=== PATIENT | male | born 1950 | race Caucasian/White ===

== ENCOUNTER 2019-09-08 14:56 | Outpatient (CLI) | payer OTHER, SELFPAY ==
[2019-09-08 16:00] LABS: Blood Urea Nitrogen 36 mg/dL (9-20); Calcium 9.6 mg/dL (8.4-10.2); Carbon Dioxide 24 mmol/L (22-30); Chloride 105 mmol/L (98-107); Estimated Glomerular Filt Rate 55; Glucose 109 mg/dL (75-110); Sodium 139 mmol/L (137-145)
== END 2019-09-08 14:57 | disposition home or self-care (01) ==
PROVIDERS: PCP Family Medicine; Visit Provider Family Medicine
DX: I10 Essential (primary) hypertension (principal)
CPT/HCPCS: 36415; 80048

== ENCOUNTER 2019-10-27 11:12 | Outpatient (CLI) | payer OTHER, SELFPAY ==
[2019-10-27 12:14] LABS: Anion Gap 10 mmol/L (8-16); Blood Urea Nitrogen 18 mg/dL (9-20); Calcium 9.6 mg/dL (8.4-10.2); Carbon Dioxide 26 mmol/L (22-30); Chloride 102 mmol/L (98-107); Estimated Glomerular Filt Rate > 60; Glucose 111 mg/dL (75-110); Potassium 4.6 mmol/L (3.4-5.0); Sodium 138 mmol/L (137-145)
== END 2019-10-27 11:13 | disposition home or self-care (01) ==
PROVIDERS: Visit Provider Physician Assistant
DX: I10 Essential (primary) hypertension (principal)
CPT/HCPCS: 36415; 80048

== ENCOUNTER 2019-10-28 13:57 | Outpatient (CLI) | payer OTHER, SELFPAY | END 2019-10-28 13:58 | disposition home or self-care (01) | LOC: ANHAUDIO 13:58 | PROVIDERS: Visit Provider Otolaryngology | DX: H90.A22 Sensorineural hearing loss, unilateral, left ear, with restricted hearing on the contralateral side (principal); H90.A31 Mixed conductive and sensorineural hearing loss, unilateral, right ear with restricted hearing on the contralateral side | CPT/HCPCS: 92557; 92567 ==

== ENCOUNTER 2020-11-07 01:47 | Day surgery (SDC) | payer OTHER, SELFPAY ==
[2020-10-31 11:23] VITALS: BMI 34.6
[2020-11-07 08:48] VITALS: BP 154/61; PULSE 66; RESP 20; TEMP 36; O2SAT 99; BMI 34.1
--- NOTE | 2020-11-07 08:58 | WPDGICN ---
Assessment and Plan Assessment and plan (1) History of colon polyps: Code(s): Z86.010 - Personal history of colonic polyps Status: Acute Assessment and Plan: Patient had colon polyps by colonoscopy in 2017. Plan is for surveillance exam at this time. Further recommendations will be given after endoscopy. 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 Patient has a history of colon polyps identified in 2017. Patient's current weight appetite bowel movements are normal. Past medical history is significant for abdominal aortic aneurysm repair as well as peripheral vascular disease. Review of Systems Review of Systems: All systems reviewed & are unremarkable except as noted in HPI and below PMFSH Past Medical History Medical History (Updated 11/07/20 @ 09:00 by Gustavo Jimenez MD) AAA (abdominal aortic aneurysm) Carotid stenosis Peripheral vascular disease Surgical History Surgical History History of endovascular stent graft for abdominal aortic aneurysm (AAA) History of left-sided carotid endarterectomy Hx of appendectomy S/P insertion of iliac artery stent bilateral Family History Family History Mother Family history of diabetes mellitus in first degree relative Sibling Patient's sister is in good health, Onset Age: 56 Father Family history of elevated blood lipids, Onset Age: 83 Social History Social History Smoking packs per day: 1 Smoking cigarettes per day: 20.0 Years smoked: 30 Smoking pack-years: 30.00 Smoking status: Former smoker Tobacco type: cigarettes Second hand tobacco smoke exposure: No Smoking end date: 11/14/18 Alcohol intake: current Drinks per week: 2 Alcohol use details: Beer Substance use: never Substance use type: does not use Living arrangements: with family Gender identity (if verbalized by the patient): Male Spiritual care concerns: No Meds Home Medications and Allergies Home Medications Medication Instructions Recorded Confirmed Type aspirin 81 mg tablet,delayed 81 mg PO DAILY 01/25/19 10/31/20 History release fenofibrate nanocrystallized 145 145 mg PO DAILY #90 tablet 04/10/20 10/31/20 Rx mg tablet losartan 100 mg tablet 100 mg PO DAILY #30 tablet 09/18/20 10/31/20 Rx hydrochlorothiazide 25 mg tablet 25 mg PO DAILY #60 tablet 09/21/20 10/31/20 Rx icosapent ethyl 1 gram capsule 2 g PO BID #120 cap 09/25/20 10/31/20 Rx Vitamin D3 1 cap PO DAILY 10/31/20 10/31/20 History carvedilol 12.5 mg PO BID 10/31/20 10/31/20 History diclofenac sodium 75 mg PO BID 10/31/20 10/31/20 History ezetimibe-simvastatin [Vytorin 1 tablet PO HS 10/31/20 10/31/20 History 10-20] Allergies Allergy/AdvReac Type Severity Reaction Status Date / Time No Known Allergies Allergy Verified 11/07/20 08:46 Vital Signs Vital Signs - 24 hr 11/07/20 08:48 Temperature 96.8 F L Pulse Rate 66 Respiratory Rate 20 Blood Pressure 154/61 H Pulse Oximetry 99 Exam Narrative: Physical exam reveals patient to be alert. Vital signs stable. HEENT exam is unremarkable. Patient is anicteric. Lungs are clear to auscultation and percussion.
--- NOTE | 2020-11-07 09:09 | WPDANESEPPF ---
Anes - Initial Pre Proc Eval Procedure: Operation Date: 11/07/20 09:30 Proposed Procedures p Screening Colonoscopy - Gustavo Jimenez MD Date/Time: 11/07/20 09:09 Surgeon: Gustavo Jimenez MD Pre Op Diagnosis: hx of colon polyps Patient Data Age: 70 Gender: M Height: 1.78 m Weight: 107.9 kg Last Vital Signs Temp 36.0 C L 11/07/20 08:48 Pulse 66 11/07/20 08:48 Resp 20 11/07/20 08:48 BP 154/61 H 11/07/20 08:48 Pulse Ox 99 11/07/20 08:48 Allergies Allergy/AdvReac Type Severity Reaction Status Date / Time No Known Allergies Allergy Verified 11/07/20 08:46 Home Medications Medication Instructions Recorded Confirmed Type aspirin 81 mg tablet,delayed 81 mg PO DAILY 01/25/19 11/07/20 History release fenofibrate nanocrystallized 145 145 mg PO DAILY #90 tablet 04/10/20 11/07/20 Rx mg tablet losartan 100 mg tablet 100 mg PO DAILY #30 tablet 09/18/20 11/07/20 Rx hydrochlorothiazide 25 mg tablet 25 mg PO DAILY #60 tablet 09/21/20 11/07/20 Rx icosapent ethyl 1 gram capsule 2 g PO BID #120 cap 09/25/20 11/07/20 Rx Vitamin D3 1 cap PO DAILY 10/31/20 11/07/20 History carvedilol 12.5 mg PO BID 10/31/20 11/07/20 History diclofenac sodium 75 mg PO BID 10/31/20 11/07/20 History ezetimibe-simvastatin [Vytorin 1 tablet PO HS 10/31/20 11/07/20 History 10-20] Patient hx anesthesia problems: none Family hx anesthesia problems: none PMFSH Past Medical History Medical History AAA (abdominal aortic aneurysm) Carotid stenosis Peripheral vascular disease Surgical History Surgical History History of endovascular stent graft for abdominal aortic aneurysm (AAA) History of left-sided carotid endarterectomy Hx of appendectomy S/P insertion of iliac artery stent bilateral Family History Family History Mother Family history of diabetes mellitus in first degree relative Sibling Patient's sister is in good health, Onset Age: 56 Father Family history of elevated blood lipids, Onset Age: 83 Social History Social History Smoking packs per day: 1 Smoking cigarettes per day: 20.0 Years smoked: 30 Smoking pack-years: 30.00 Smoking status: Former smoker Tobacco type: cigarettes Second hand tobacco smoke exposure: No Smoking end date: 11/14/18 Alcohol intake: current Drinks per week: 2 Alcohol use details: Beer Substance use: never Substance use type: does not use Living arrangements: with family Gender identity (if verbalized by the patient): Male Spiritual care concerns: No Anes - Eval Final PreProcedure Day of Procedure 11/07/20 09:09 Patient weight: obese Heart: regular rate and rhythm Lungs: clear to auscultation Airway: Mallampati scale class II Neurological: alert and oriented Last oral intake: >/= 8 hours ASA classification: III Emergent: no Anesthetic plan: proceed Anesthesia type and monitoring: general GIVS and standard monitoring Informed Consent: The patient's anesthetic plan and its attendant risks and benefits were discussed with the patient/family/POA. Questions were solicited and answers provided to the satisfaction of the patient/family/POA.
[2020-11-07] MEDS: LACTATED RINGERS 1,000 ML 150 ML IV CONT (09:21)
[2020-11-07 09:51] VITALS: BP 94/41; PULSE 74; RESP 18; O2SAT 98
[2020-11-07 10:01] VITALS: BP 96/44; PULSE 73; RESP 19; O2SAT 97
[2020-11-07 10:11] VITALS: BP 120/49; PULSE 61; RESP 18; O2SAT 97
== END 2020-11-07 10:20 | disposition home or self-care (01) ==
PROVIDERS: PCP Family Medicine; Visit Provider Internal Medicine Gastroenterology
PROC: 0DJD8ZZ Inspection of Lower Intestinal Tract, Via Natural or Artificial Opening Endoscopic (ICD-10-PCS; CPT 45378; principal; 2020-11-07 09:30)
DX: Z12.11 Encounter for screening for malignant neoplasm of colon (principal); Z86.010 Personal history of colon polyps; K57.30 Diverticulosis of large intestine without perforation or abscess without bleeding; Z79.82 Long term (current) use of aspirin; I71.4 Abdominal aortic aneurysm, without rupture; I65.29 Occlusion and stenosis of unspecified carotid artery; Z87.891 Personal history of nicotine dependence; E66.9 Obesity, unspecified; Z68.34 Body mass index [BMI] 34.0-34.9, adult; I70.203 Unspecified atherosclerosis of native arteries of extremities, bilateral legs
CPT/HCPCS: G0105; J2001; J2704; J7120

== ENCOUNTER 2021-06-11 15:46 | Inpatient (IN) | payer OTHER, SELFPAY ==
[2021-06-11] VITALS (10 sets, daily range): BP systolic 122–135; BP diastolic 56–76; PULSE 71–117; RESP 13–22; TEMP 36.4; O2SAT 93–97; BMI 34.3
[2021-06-11 16:04] LABS: Basophils Percent Auto 0.5 % (0.2-1.2); Eosinophils Percent Auto 0.3 % (0-4.4); Hematocrit 48.6 % (42.0-52.0); Hemoglobin 16.2 g/dL (14.0-18.0); Immature Granulocyte Absolute 0.05 K/mm3 (0.00-0.031); Immature Granulocyte Percent A 0.9 % (0-0.5); Lymphocytes Absolute Auto 0.77 K/mm3 (0.9-3.2); Lymphocytes Percent Auto 13.3 % (18.3-44.2); Mean Corpuscular HGB Conc 33.3 g/dl (32-36); Mean Corpuscular Volume 93.1 fl (80-100); Mean Platelet Volume 10.8 fl (7.4-10.4); Monocytes Absolute Auto 0.8 K/mm3 (0.1-0.6); Monocytes Percent Auto 12.9 % (2.6-8.5); Neutrophils Absolute Auto 4.2 K/mm3 (1.3-6.7); Neutrophils Percent Auto 72.1 % (45.5-73.1); Platelet Count Result 202 k/mm3 (150-375); Red Blood Count 5.22 M/mm3 (4.6-6.20); White Blood Count 5.8 K/mm3 (4.5-10.0)
[2021-06-11 16:17] LABS: Alanine Aminotransferase 34 U/L (4-50); Alkaline Phosphatase 50 U/L (38-126); Anion Gap 23 mmol/L (8-16); Aspartate Amino Transferase 33 U/L (17-59); Bilirubin,Total 0.5 mg/dL (0.2-1.3); Blood Urea Nitrogen 87 mg/dL (9-20); Carbon Dioxide 14 mmol/L (22-30); Chloride 100 mmol/L (98-107); Estimated CRCL calculation 13 ml/min; Estimated Glomerular Filt Rate 9; Glucose 124 mg/dL (65-110); Lipase 54 U/L (23-300); Potassium 4.6 mmol/L (3.4-5.0); Sodium 137 mmol/L (137-145)
--- NOTE | 2021-06-11 17:01 | ED.NAVMDI ---
HPI - Nausea/Vomiting/Diarrhea General Chief complaint: Nausea/Vomiting/Diarrhea <Stormy Montenegro PA-C - Last Filed: 06/12/21 02:01> Stated complaint: vomiting, diarrhea <MARK Hansen Last Filed: 06/12/21 02:01> Time Seen by Provider: 06/11/21 16:59 <MARK Hansen Last Filed: 06/12/21 02:01> Source: patient <MARK Hansen Last Filed: 06/12/21 02:01> Mode of arrival: ambulatory <MARK Hansen Last Filed: 06/12/21 02:01> Limitations: no limitations <MARK Hansen Last Filed: 06/12/21 02:01> History of Present Illness HPI Narrative: Patient is a 71-year-old male who presents the ED with report of N/V/D. Patient reports he developed the symptoms on Thursday morning, which have persisted since then. He reports multiple episodes of vomiting and diarrhea per day. He states he is unable to keep down any food or fluid. He has not taken his normal home medications in the past 2 days. He notified his primary care doctor of his symptoms today who recommended coming to the ED for further evaluation. Denies any hematemesis or rectal bleeding. No fevers, chills. He does report mild cramping abdominal pain due to the dry heaving/vomiting and oliguria, noting he has not urinated in the past 30 hours. No chest pain, shortness of breath, dysuria, cough, congestion. <MARK Hansen Last Filed: 06/12/21 02:01> Related Data Home medications: Home Medications Medication Instructions Recorded Confirmed aspirin 81 mg tablet,delayed 81 mg PO DAILY 01/25/19 06/11/21 release Vitamin D3 1 cap PO DAILY 10/31/20 06/11/21 carvedilol 12.5 mg PO BID 10/31/20 06/11/21 <MARK Hansen Last Filed: 06/12/21 02:01> Allergies/Adverse reactions: Allergies Allergy/AdvReac Type Severity Reaction Status Date / Time No Known Allergies Allergy Verified 06/11/21 21:51 <Stormy Montenegro PA-C - Last Filed: 06/12/21 02:01> Review of Systems Review of Systems: CONSTITUTIONAL: Denies fever, chills. ENT: Denies congestion. CARDIOVASCULAR: Denies chest pain. RESPIRATORY: Denies cough or dyspnea. GASTROINTESTINAL: Reports abdominal cramping, N/V/D. Denies rectal bleeding, hematemesis. GENITOURINARY: Reports oliguria. Denies dysuria or hematuria. SKIN: Denies rash or itching. MUSCULOSKELETAL: Denies back pain, joint pain, or myalgia. <Stormy Montenegro PA-C - Last Filed: 06/12/21 02:01> All systems reviewed & are unremarkable except as noted in HPI and below <Stormy Montenegro PA-C - Last Filed: 06/12/21 02:01> [facility], [facility] Past Medical History Medical History: Medical History AAA (abdominal aortic aneurysm) Carotid stenosis COVID-19 (~07/2019) Essential (primary) hypertension Mixed hyperlipidemia Obesity (BMI 30-39.9) Obstructive sleep apnea With CPAP use Peripheral vascular disease Personal history of nicotine dependence <Stormy Montenegro PA-C - Last Filed: 06/12/21 02:01> Surgical History Surgical History: Surgical History History of colonoscopy with polypectomy With most recent colonoscopy October 2020 demonstrating no polyps History of endovascular stent graft for abdominal aortic aneurysm (AAA) (~2019) History of left-sided carotid endarterectomy (~2018) Hx of appendectomy (2015) S/P insertion of iliac artery stent (~2019) bilateral Status post open reduction with internal fixation of fracture Left wrist <Stormy Montenegro PA-C - Last Filed: 06/12/21 02:01> Family History Family History: Family History (Updated 06/11/21 @ 22:08 by Faby Ozuna DO) Mother , At age greater than 80 Diabetes mellitus Sibling Patient's sister is in good health, Onset Age: 56 Father Hyperlipidemia Still alive at age 93 <Stormy Montenegro PA-C - Last Filed: 06/12/21 02:01> Social History Social History:
[2021-06-11] MEDS: SODIUM CHLORIDE 0.9% IV 1,000 ML 999 ML IV CONT ×2 (17:34→21:40)
[2021-06-11] MEDS: ONDANSETRON INJ 4 MG/2 ML VIAL IV PUSH (17:34)
--- NOTE | 2021-06-11 17:40 | PC.NURSE ---
Patient states he is unable to urinate at this time.
[2021-06-11 17:53] LABS: Lipase 55 U/L (23-300)
[2021-06-11 18:27] LABS: SARS-CoV-2 RNA PCR Negative
--- NOTE | 2021-06-11 20:35 | PM.IMHP ---
H&P: HPI History of Present Illness Date/Time: 06/11/21 20:35 Chief Complaint: Nausea vomiting and diarrhea Narrative: 71-year-old male with past medical history of hyperlipidemia, hypertension and obstructive sleep apnea who presented to the ER with nausea vomiting and diarrhea for 2 days. The patient reports that symptoms initially started with abdominal cramping and diarrhea. Her soon after starting diarrhea patient then had associated vomiting. His stool was brown and watery. His emesis was without blood or bile. He has not been able to keep any food or liquid down in the last 48 hours. He reports that his abdominal muscles feel sore but no more significant abdominal pain. He denies any recent ill contacts. He he denies any known food exposures or recent travel. He drinks city water supply. He denies any fevers or chills. Margareth osuna was an uric for about 12 hours before coming to the ER. He received a L of normal saline in the ER and after he arrived on the medical floor he did produce approximately 150 mL of dark yellow urine. His nausea is improved after Zofran. 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 Review of Systems Review of Systems: Laboratory Tests 06/11/21 15:55 06/11/21 15:55 06/11/21 06/11/21 06/11/21 15:55 15:55 17:27 WBC 5.8 RBC 5.22 Hgb 16.2 Hct 48.6 MCV 93.1 MCH 31.0 MCHC 33.3 RDW 14.0 Plt Count 202 MPV 10.8 H Immature Gran % (A uto) 0.9 H Neut % (Auto) 72.1 Lymph % (Auto) 13.3 L Dodge % (Auto) 12.9 H Eos % (Auto) 0.3 Baso % (Auto) 0.5 Lymph # (Auto) 0.77 L Dodge # (Auto) 0.8 H Eos # (Auto) 0.0 Baso # (Auto) 0.0 Abs Immat Gran (au to) 0.05 H Absolute Neuts (au to) 4.2 Absolute Nucleated RBC 0.0 Nucleated RBC % 0.0 Sodium 137 Potassium 4.6 Chloride 100 Carbon Dioxide 14 L Anion Gap 23 H BUN 87 H D Creatinine 6.10 H Estim Creat Clear Calc 13 Estimated GFR 9 L Glucose 124 H Calcium 8.0 L Total Bilirubin 0.5 AST 33 ALT 34 Alkaline Phosphata se 50 Total Protein 9.0 H
[2021-06-11 22:02] LABS: Appearance Urine Clear (Clear); Bilirubin Urine 1+ (Negative); Blood Urine Negative (Negative); Color Urine Yellow (Yellow); Glucose Urine UA Negative (Negative); Ketones Urine Negative (Negative); Leukocyte Esterase Ur Negative LEU/UL (Negative); Nitrate Urine Negative (Negative); Protein Urine 1+ mg/dL (Negative); Specific Grav Ur >= 1.030 (1.001-1.035); Urobilinogen Urine 0.2 mg/dL (<2.0)
[2021-06-11 22:21] LABS: Mucus Urine Rare /lpf; RBC Urine 0-2 /hpf (0-2); Squamous Epithelial Cell Urine Rare /hpf (Few); WBC Urine 0-3 /hpf
[2021-06-11 22:27] LABS: Add Urine Microscopic? YES
[2021-06-11] MEDS: SODIUM CHLORIDE 0.9% IV 1,000 ML 125 ML IV CONT (22:49)
--- NOTE | 2021-06-11 22:57 | ADMGEN ---
This patient, Gustavo Goodrich, was admitted to [facility] Surg Room 330- at 1930. Patient/family oriented to hospital policies and general routines including ID bracelet, bed and alarms, visiting hours, pain management, procedures, bathroom and other care routines, personal items, smoking policy, room service/diet, and visiting hours. Information on how to activate the Rapid Response Team has been discussed. Patient/Family are encouraged to report perceived risks to care and to ask questions if they do not understand what they are told or what they should do.
[2021-06-11] MEDS: EZETIMIBE 10 MG TABLET PO (23:07)
[2021-06-11] MEDS: carvediloL 12.5 MG TABLET PO (23:07)
[2021-06-11] MEDS: OMEGA 3 POLYUNSAT FATTY ACIDS 1 GM CAP 2 GM PO (23:07)
[2021-06-11] MEDS: SIMVASTATIN 20 MG TABLET PO (23:07)
[2021-06-12] VITALS (11 sets, daily range): BP systolic 113–123; BP diastolic 40–57; PULSE 72–93; RESP 16–18; TEMP 36.1–36.9; O2SAT 95–97
[2021-06-12] MEDS: SODIUM CHLORIDE 0.9% IV 1,000 ML 125 ML IV CONT ×2 (06:34→14:20)
[2021-06-12 06:41] LABS: Anion Gap 14 mmol/L (8-16); Blood Urea Nitrogen 88 mg/dL (9-20); Calcium 6.9 mg/dL (8.4-10.2); Carbon Dioxide 17 mmol/L (22-30); Chloride 103 mmol/L (98-107); Estimated CRCL calculation 21 ml/min; Estimated Glomerular Filt Rate 16; Glucose 122 mg/dL (65-110); Hematocrit 41.3 % (42.0-52.0); Hemoglobin 13.6 g/dL (14.0-18.0); Magnesium 1.6 mg/dL (1.6-2.3); Mean Corpuscular HGB Conc 32.9 g/dl (32-36); Mean Corpuscular Hemoglobin 30.8 pg (26-34); Mean Corpuscular Volume 93.7 fl (80-100); Mean Platelet Volume 10.7 fl (7.4-10.4); Phosphorus 5.1 mg/dL (2.5-4.5); Platelet Count Result 154 k/mm3 (150-375); Red Blood Count 4.41 M/mm3 (4.6-6.20); Red Cell Distribution Width 13.9 % (11.5-14.5); Sodium 134 mmol/L (137-145); White Blood Count 6.9 K/mm3 (4.5-10.0)
[2021-06-12] MEDS: ENOXAPARIN 30 MG/0.3 ML SYRINGE SUB-Q (09:22)
[2021-06-12] MEDS: FENOFIBRATE NANOCRYSTALLIZED 145 MG TABLET PO (09:22)
[2021-06-12] MEDS: carvediloL 12.5 MG TABLET PO ×2 (09:22→20:34)
[2021-06-12] MEDS: OMEGA 3 POLYUNSAT FATTY ACIDS 1 GM CAP 2 GM PO ×2 (09:22→20:34)
[2021-06-12] MEDS: ASPIRIN 81 MG ENTERIC TABLET PO (09:22)
[2021-06-12] MEDS: SALINE 0.65% NAS SOLN 44 ML BTL 1 SPRAY NASAL (09:23)
--- NOTE | 2021-06-12 10:53 | PCCCNOTE ---
On 06/12/21, the student, [Vivian Young ], provided care and completed [facility] documentation on this patient. I have reviewed the student's documentation and agree with the findings.
--- NOTE | 2021-06-12 12:07 | PM.CNNEP ---
Assessment and Plan Assessment and plan (1) JESSIE (acute kidney injury): Code(s): N17.9 - Acute kidney failure, unspecified Status: Acute Assessment and Plan: presumably due to volume depletion from #2 complicated by concurrent use of HCTZ + ARB (and possibly NSAIDs) renal function improving with IVF resuscitation and holding nephrotoxic agents continue current therapy for now follow repeat labs and UOP (2) Nausea vomiting and diarrhea: Code(s): R11.2 - Nausea with vomiting, unspecified; R19.7 - Diarrhea, unspecified Status: Acute Assessment and Plan: suspect viral etiology eating lunch without difficult on my visit supportive therapy (3) Metabolic acidosis: Code(s): E87.2 - Acidosis Status: Acute Assessment and Plan: precipitated by GI issues and subsequent JESSIE/ARF improving/stabilizing follow CO2 (4) Essential (primary) hypertension: Code(s): I10 - Essential (primary) hypertension Status: Chronic Assessment and Plan: reasonable control at this time HCTZ and ARB on hold follow trend of hemodynamics Will continue to follow. History of Present Illness Reason for Consult Consult date: 06/12/21 Reason for consult: acute renal failure Chief Complaint Chief complaint: Acute renal failure History of Present Illness Narrative: The patient is a 71-year-old male with a past medical history as outlined below who presented to [facility] Emergency room with complaints of nausea, vomiting, and diarrhea. All of the symptoms seem to be of going on for last 2-3 days. Initially, the symptoms started with just abdominal cramping and diarrhea but soon after the diarrhea started he started having issues with nausea and vomiting. Both his stool as well as his emesis was without blood, bile, or any other contents. Unfortunately, because of the symptoms he has been unable to keep anything down in terms of oral hydration or food for the past 2-3 days. He he has been having so much nausea and vomiting that his abdominal muscles are quite sore. No reported fevers or chills or any other subjective symptoms. Workup and evaluation emergency room demonstrated the patient to be slightly hypotensive but in no acute [place] acute distress. Given his symptomatology and the concern for dehydration, he was given IV fluid boluses in the emergency room with routine blood test that demonstrated evidence of acute kidney injury/ acute renal failure. Following the IV fluid bolus, he did produce some urine as an previously he had been almost anuric. his nausea symptoms improved with IV antiemetics as well. Since his admission, his symptoms of nausea vomiting and diarrhea seemed to be doing somewhat better in general. At the time of my visit, he was eating lunch and did not appear to have any issues or problems with this. Renal consultation was requested due to his acute kidney injury/acute renal failure. From review of his records, at least as far back as 2019, he had a baseline creatinine around 1.3 mg/dL which would argue that he may have some mild renal insufficiency at baseline. However, on presentation to the hospital, his creatinine was up to 6.1 mg/dL with an associated metabolic acidosis but no evidence of critical electrolyte abnormalities. With regard to risk factors for kidney disease he does have hypertension and hyperlipidemia as well as a well-documented history of peripheral vascular disease and follows with Dr. Calvillo at [facility] for this issue. Currently, at the time my evaluation, he appears to be in no acute distress and as already mentioned, eating and drinking reasonably well at the time of my visit. His is at bedside and we discussed the situation. Review of Systems Review of Systems: As per HPI. [facility] Past Medical History Medical History AAA (a
--- NOTE | 2021-06-12 13:27 | PM.IMPN ---
Progress Note: A&P Assessment and Plan (1) Acute renal failure: Qualifiers: Acute renal failure type: unspecified Qualified Code(s): N17.9 - Acute kidney failure, unspecified Code(s): N17.9 - Acute kidney failure, unspecified Status: Acute Assessment and Plan: Most likely prerenal in etiology secondary to dehydration. Likely worsened by concomitant use of diclofenac, hydrochlorothiazide, losartan Creatinine elevated to 6.1 on presentation and patient was anuric Significant improvement with IV fluids overnight. Creatinine is 3.7 today Monitor urine output S/p 2 L IV fluid bolus. Continue with IV fluid rehydration at 125 ml/hr. Monitor volume status closely Appreciate nephrology consultation Holding nephrotoxic medications Continue to monitor renal function closely and renally dose medications (2) Nausea vomiting and diarrhea: Code(s): R11.2 - Nausea with vomiting, unspecified; R19.7 - Diarrhea, unspecified Status: Acute Assessment and Plan: Resolved. Suspect viral etiology Patient tolerating heart healthy diet (3) Essential (primary) hypertension: Code(s): I10 - Essential (primary) hypertension Status: Acute Assessment and Plan: Blood pressure reviewed and has been stable. Last BP 113/57 Continue carvedilol HCTZ and losartan on hold Monitor blood pressure trends (4) Obstructive sleep apnea (adult) (pediatric): Code(s): G47.33 - Obstructive sleep apnea (adult) (pediatric) Status: Acute Assessment and Plan: Continue home CPAP (5) Peripheral vascular disease: Code(s): I73.9 - Peripheral vascular disease, unspecified Status: Acute Assessment and Plan: Established with vascular surgeon, Dr. Calvillo No acute issues Continue aspirin Subjective Date/time seen: 06/12/21 13:27 Interval history: Date of service: 06/12/2021 Gustavo Goodrich is a 71-year-old male with a history of carotid stenosis s/p carotid endarterectomy, peripheral vascular disease s/p iliac stent, AAA s/p endovascular stent, LULI, hypertension, and hyperlipidemia who is seen in follow-up for acute kidney injury. He states that he is feeling better today. He presented with vomiting, diarrhea, and abdominal cramping. Denies sick contacts. He states that all the symptoms have resolved. He does still have some abdominal soreness related to dry heaving. No further nausea or vomiting. He had a small amount of loose stool today. He is passing flatus. This morning he had aches and a biscuit for breakfast and tolerated this well. He has been drinking plenty of water. He has been urinating more frequently and states he cap 2 times last night to urinate. He does complain of sinus congestion which has improved with nasal saline. He denies chest pain or palpitations. No dizziness, lightheadedness, weakness. He is able to ambulate to the bathroom without difficulty. He denies dysuria or hematuria. Denies pain in his legs. Denies numbness or tingling of his extremities. No shortness breath or cough. Review of Systems Review of Systems: All systems reviewed & are unremarkable except as noted in HPI and below Exam Narrative: General: Well-nourished, well-appearing 71 year-old male, sitting in a chair by the bedside, comfortable, NARD Neuro: awake, alert and oriented x4, speech clear, no focal neuro deficits noted HEENMT: normocephalic, atraumatic, EOMI, sclerae anicteric, moist oral mucosa Respiratory: clear to auscultation bilaterally, nonlabored breathing Cardio: regular rate, regular rhythm with S1-S2 Abdomen: nondistended, normoactive bowel sounds, soft, nontender to palpation Extremities: no edema, erythema, or tenderness to palpation, able to wiggle toes bilaterally, brisk capillary refill Skin: no rashes or lesions, warm and dry Psych: appropriate mood and affect, judgment and insight intact Objective Data Vital Signs V
[2021-06-12] MEDS: EZETIMIBE 10 MG TABLET PO (20:34)
[2021-06-12] MEDS: SIMVASTATIN 20 MG TABLET PO (20:34)
[2021-06-13] VITALS (13 sets, daily range): BP systolic 128–161; BP diastolic 48–64; PULSE 59–79; RESP 16–20; TEMP 36–37.2; O2SAT 95–97
[2021-06-13 02:00] LABS: Creatinine Urine 94.4 mg/dL; Total Protein Urine Random 17 mg/dL; Ur Ttl Prot Creatinine Ratio 0.18 mg/mg (0-0.20)
[2021-06-13 02:03] LABS: Sodium Urine Random 42 meq/L
[2021-06-13] MEDS: SODIUM CHLORIDE 0.9% IV 1,000 ML 100 ML IV CONT ×3 (02:11→23:52)
[2021-06-13 06:08] LABS: Hematocrit 38.4 % (42.0-52.0); Hemoglobin 12.4 g/dL (14.0-18.0); Mean Corpuscular HGB Conc 32.3 g/dl (32-36); Mean Corpuscular Hemoglobin 31.3 pg (26-34); Mean Platelet Volume 10.5 fl (7.4-10.4); Platelet Count Result 144 k/mm3 (150-375); Red Blood Count 3.96 M/mm3 (4.6-6.20); Red Cell Distribution Width 14.2 % (11.5-14.5); White Blood Count 6.2 K/mm3 (4.5-10.0)
[2021-06-13 06:19] LABS: Creatine Kinase 74 U/L (55-170)
[2021-06-13 06:23] LABS: Albumin Level 3.7 g/dL (3.5-5.1); Anion Gap 7 mmol/L (8-16); Blood Urea Nitrogen 70 mg/dL (9-20); Calcium 7.2 mg/dL (8.4-10.2); Carbon Dioxide 21 mmol/L (22-30); Chloride 107 mmol/L (98-107); Estimated CRCL calculation 42 ml/min; Estimated Glomerular Filt Rate 38; Glucose 99 mg/dL (65-110); Phosphorus 3.4 mg/dL (2.5-4.5); Potassium 3.7 mmol/L (3.4-5.0); Sodium 135 mmol/L (137-145)
[2021-06-13] MEDS: FENOFIBRATE NANOCRYSTALLIZED 145 MG TABLET PO (08:32)
[2021-06-13] MEDS: OMEGA 3 POLYUNSAT FATTY ACIDS 1 GM CAP 2 GM PO ×2 (08:32→21:08)
[2021-06-13] MEDS: ASPIRIN 81 MG ENTERIC TABLET PO (08:32)
[2021-06-13] MEDS: ENOXAPARIN 30 MG/0.3 ML SYRINGE SUB-Q (08:32)
[2021-06-13] MEDS: carvediloL 12.5 MG TABLET PO ×2 (08:33→21:08)
--- NOTE | 2021-06-13 10:49 | PM.IMPN ---
Progress Note: A&P Assessment and Plan (1) Acute renal failure: Qualifiers: Acute renal failure type: unspecified Qualified Code(s): N17.9 - Acute kidney failure, unspecified Code(s): N17.9 - Acute kidney failure, unspecified Status: Acute Assessment and Plan: Most likely prerenal in etiology secondary to dehydration. Likely worsened by concomitant use of diclofenac, hydrochlorothiazide, losartan Creatinine elevated to 6.1 on presentation and patient was anuric Significant improvement with IV fluids. Creatinine is 1.8 today, BUN 70 Monitor urine output S/p 2 L IV fluid bolus. Continue with IV fluid rehydration at 100 ml/hr. Monitor volume status closely Appreciate nephrology consultation Holding nephrotoxic medications Continue to monitor renal function closely and renally dose medications (2) Nausea vomiting and diarrhea: Code(s): R11.2 - Nausea with vomiting, unspecified; R19.7 - Diarrhea, unspecified Status: Acute Assessment and Plan: Resolved. Suspect viral etiology Patient tolerating heart healthy diet (3) Essential (primary) hypertension: Code(s): I10 - Essential (primary) hypertension Status: Acute Assessment and Plan: Blood pressure reviewed and has been stable. Last BP 129/64 Continue carvedilol HCTZ and losartan on hold Monitor blood pressure trends (4) Obstructive sleep apnea (adult) (pediatric): Code(s): G47.33 - Obstructive sleep apnea (adult) (pediatric) Status: Acute Assessment and Plan: Continue home CPAP (5) Peripheral vascular disease: Code(s): I73.9 - Peripheral vascular disease, unspecified Status: Acute Assessment and Plan: Established with vascular surgeon, Dr. Calvillo No acute issues Continue aspirin Subjective Date/time seen: 06/13/21 10:49 Interval history: Date of service: 06/13/2021 Gustavo Goodrich is a 71-year-old male with a history of carotid stenosis s/p carotid endarterectomy, peripheral vascular disease s/p iliac stent, AAA s/p endovascular stent, LULI, hypertension, and hyperlipidemia who is seen in follow-up for acute kidney injury. He is doing well today. He offers no complaints. His nausea, vomiting, and diarrhea have resolved. He is able to get up and walk around his room without any difficulty. He ate a good breakfast today, and stated this was the most he has been able to eat in several days. He does at times feel a bit lightheaded and ?bizarre? which he believes is due to laying in bed for prolonged periods of time. He is not used to doing this. He denies shortness of breath, cough, chest pain, palpitations. He denies abdominal pain, cramping, bloating. He is making urine and denies dysuria. Review of Systems Review of Systems: All systems reviewed & are unremarkable except as noted in HPI and below Exam Narrative: General: Well-nourished, well-appearing 71 year-old male, sitting in a chair by the bedside, comfortable, NARD Neuro: awake, alert and oriented x4, speech clear, no focal neuro deficits noted HEENMT: normocephalic, atraumatic, EOMI, sclerae anicteric, moist oral mucosa Respiratory: clear to auscultation bilaterally, nonlabored breathing Cardio: regular rate, regular rhythm with S1-S2 Abdomen: nondistended, normoactive bowel sounds, soft, nontender to palpation Extremities: no edema, erythema, or tenderness to palpation, able to wiggle toes bilaterally Skin: no rashes or lesions, warm and dry Psych: appropriate mood and affect, judgment and insight intact Objective Data Vital Signs Vital Signs: Vital Signs - 24 hr 06/12/21 12:00 06/12/21 14:00 06/12/21 16:00 Temperature 97.2 F L Pulse Rate 79 72 76 Respiratory Rate 18 Blood Pressure 123/47 L Pulse Oximetry 96 06/12/21 20:00 06/12/21 20:34 06/12/21 22:00 Temperature 98.4 F Pulse Rate 74 76 74 Respiratory Rate 16 16 Blood Pressure 114/40 L
--- NOTE | 2021-06-13 11:57 | PM.PNNEP ---
Progress Note: A&P Assessment and Plan (1) JESSIE (acute kidney injury): Code(s): N17.9 - Acute kidney failure, unspecified Status: Acute Assessment and Plan: resolving presumably due to volume depletion from #2 complicated by concurrent use of HCTZ + ARB (and possibly NSAIDs) renal function improving with IVF resuscitation and holding nephrotoxic agents continue current therapy for now follow repeat labs and UOP (2) Nausea vomiting and diarrhea: Code(s): R11.2 - Nausea with vomiting, unspecified; R19.7 - Diarrhea, unspecified Status: Acute Assessment and Plan: suspect viral etiology toleraing oral intake supportive therapy (3) Metabolic acidosis: Code(s): E87.2 - Acidosis Status: Acute Assessment and Plan: precipitated by GI issues and subsequent JESSIE/ARF improving/stabilizing follow CO2 (4) Essential (primary) hypertension: Code(s): I10 - Essential (primary) hypertension Status: Chronic Assessment and Plan: reasonable control at this time HCTZ and ARB on hold follow trend of hemodynamics Will continue to follow. Subjective Date/time seen: 06/13/21 11:57 Appears to be feeling quite well today in general; continues to tolerated oral intake without any nause/vomiting/diarrhea;renal function continues to improve as noted by AM labs; no issues/events overnight or earlier this AM. Exam Narrative: General: WD/WN male in NAD Heart: normal S1 and S2; no rub Lungs: clear to auscultation Abdomen: soft, nontender, nondistended, positive bowel sounds Extremities: no cyanosis or clubbing; no edema Skin: warm and dry Objective Data Vital Signs Vital Signs: Vital Signs Temp Pulse Resp BP Pulse Ox 06/13/21 08:33 70 06/13/21 08:00 70 16 97 06/13/21 06:00 37.2 C 71 16 129/64 97 06/13/21 04:00 67 06/13/21 03:02 74 95 06/13/21 00:03 76 97 06/13/21 00:00 76 06/12/21 22:00 36.9 C 74 16 114/40 L 97 06/12/21 20:34 76 06/12/21 20:00 74 16 97 06/12/21 16:00 76 06/12/21 14:00 36.2 C L 72 18 123/47 L 96 06/12/21 12:00 79 Intake/Output Intake/Output: Intake & Output 06/10/21 06/11/21 06/12/21 06/13/21 23:59 23:59 23:59 23:59 Intake Total 1999 5230 1750 Output Total 1500 1550 Balance 1999 3730 200 Meds/Results Medications: Active Medications Generic Name Dose Route Start Last Admin Trade Name Aurea PRN Reason Stop Dose Admin Aspirin 81 mg 06/12/21 09:00 06/13/21 08:32 Aspirin 81 Mg Enteric Tablet PO 81 mg DAILY ROSINA Administration Carvedilol 12.5 mg 06/11/21 22:05 06/13/21 08:33 Carvedilol 12.5 Mg Tablet PO 12.5 mg Q12HR ROSINA Administration Ezetimibe 10 mg 06/11/21 22:05 06/12/21 20:34 Ezetimibe 10 Mg Tablet PO 07/12/21 22:04 10 mg HS ROSINA Administration Enoxaparin Sodium 30 mg 06/12/21 09:00 06/13/21 08:32 Enoxaparin 30 Mg/0.3 Ml Syringe SUB-Q 30 mg DAILY ROSINA Administration Fenofibrate 145 mg 06/12/21 09:00 06/13/21 08:32 Fenofibrate Nanocrystallized 145 Mg Tablet PO 145 mg DAILY ROSINA Administration Fish Oil 2 gm 06/11/21 22:05 06/13/21 08:32 Altura 3 Polyunsat Fatty Acids 1 Gm Cap PO 2 gm Q12HR ROSINA Administration Sodium Chloride 1,000 mls @ 100 mls/hr 06/11/21 17:35 06/13/21 11:36 Normal Saline Iv IV CONT 100 mls/hr .Q10H ROSINA Administration Ondansetron HCl 4 mg 06/11/21 17:33 Ondansetron Inj 4 Mg/2 Ml Vial IV PUSH Q4H PRN Nausea Simvastatin 20 mg 06/11/21 22:05 06/12/21 20:34 Simvastatin 20 Mg Tablet PO 20 mg HS ROSINA Administration Sodium Chloride 1 spray 06/12/21 06:50 06/12/21 09:23 Saline 0.65% Tadeo Soln 44 Ml Btl NASAL 1 spray Q6HR PRN Administration Congestion Labs Labs: Laboratory Tests 06/13/21 05:40 06/13/21 05:40
[2021-06-13] MEDS: SIMVASTATIN 20 MG TABLET PO (21:08)
[2021-06-13] MEDS: EZETIMIBE 10 MG TABLET PO (21:09)
[2021-06-14] VITALS: PULSE 59
[2021-06-14 00:20] VITALS: PULSE 66; O2SAT 97
[2021-06-14 04:00] VITALS: PULSE 60
[2021-06-14 06:00] VITALS: BP 124/62; PULSE 64; RESP 20; TEMP 36.1; O2SAT 98
[2021-06-14 06:04] LABS: Hematocrit 35.3 % (42.0-52.0); Hemoglobin 11.5 g/dL (14.0-18.0)
[2021-06-14 06:34] LABS: Anion Gap 7 mmol/L (8-16); Blood Urea Nitrogen 47 mg/dL (9-20); Calcium 7.6 mg/dL (8.4-10.2); Carbon Dioxide 23 mmol/L (22-30); Chloride 109 mmol/L (98-107); Estimated CRCL calculation 62 ml/min; Estimated Glomerular Filt Rate 60; Glucose 101 mg/dL (65-110); Potassium 3.8 mmol/L (3.4-5.0); Sodium 139 mmol/L (137-145)
[2021-06-14 08:00] VITALS: PULSE 68
[2021-06-14] MEDS: ENOXAPARIN 30 MG/0.3 ML SYRINGE SUB-Q (09:39)
[2021-06-14 09:40] VITALS: PULSE 64
[2021-06-14] MEDS: carvediloL 12.5 MG TABLET PO (09:40)
[2021-06-14] MEDS: OMEGA 3 POLYUNSAT FATTY ACIDS 1 GM CAP 2 GM PO (09:40)
[2021-06-14] MEDS: FENOFIBRATE NANOCRYSTALLIZED 145 MG TABLET PO (09:40)
[2021-06-14] MEDS: ASPIRIN 81 MG ENTERIC TABLET PO (09:40)
--- NOTE | 2021-06-14 10:38 | PM.DS ---
DS: Admitting Diagnosis Discharge Date 06/14/2021 Admitting Diagnosis JESSIE DS: Discharge Diagnosis Discharge Diagnosis (1) Acute renal failure: Qualifiers: Acute renal failure type: unspecified Qualified Code(s): N17.9 - Acute kidney failure, unspecified Code(s): N17.9 - Acute kidney failure, unspecified Status: Acute Assessment and Plan: Prerenal in etiology secondary to dehydration from N/V/D, worsened by concomitant use of diclofenac, hydrochlorothiazide, losartan Creatinine elevated to 6.1 on presentation and patient was anuric He had significant improvement with IV fluid rehydration and urine output normalized Creatinine improved to 1.2 at time of discharge and BUN decline to 47 Will continue holding hydrochlorothiazide and losartan. Diclofenac discontinued Repeat renal function panel in 1 week with results to PCP for further monitoring (2) Nausea vomiting and diarrhea: Code(s): R11.2 - Nausea with vomiting, unspecified; R19.7 - Diarrhea, unspecified Status: Acute Assessment and Plan: Patient presented with nausea, vomiting, and diarrhea ongoing for several days. Could not keep down fluids Suspect viral etiology Resolved Patient was able to tolerate a heart healthy diet (3) Essential (primary) hypertension: Code(s): I10 - Essential (primary) hypertension Status: Chronic Assessment and Plan: Blood pressure reviewed and were stable even with holding his antihypertensives Continue carvedilol HCTZ and losartan held on discharge due to JESSIE Instructed to monitor BP at home and follow-up with PCP in 1 week for blood pressure check (4) Obstructive sleep apnea (adult) (pediatric): Code(s): G47.33 - Obstructive sleep apnea (adult) (pediatric) Status: Acute Assessment and Plan: Continue home CPAP (5) Peripheral vascular disease: Code(s): I73.9 - Peripheral vascular disease, unspecified Status: Acute Assessment and Plan: Established with vascular surgeon, Dr. Calvillo No acute issues during admission Continue aspirin DS: Summary Hospital Course Hospital Course: Date of admission: 06/11/2021 Date of discharge: 06/14/2021 Gustavo Goodrich is a 71-year-old male with a history of carotid stenosis s/p carotid endarterectomy, peripheral vascular disease s/p iliac stent, AAA s/p endovascular stent, LULI, hypertension, and hyperlipidemia who presented to the emergency department on 06/11/2021 with complaints of nausea, vomiting, and diarrhea for 2 days and he complained of anuria, being that he had not urinated in 30 hours. On initial evaluation, he was found to have creatinine of 3.7 and BUN 88. He was admitted to the hospitalist service for further evaluation management was seen in consultation by nephrology. Please see above for further details. He had improvement back to baseline following IV fluid rehydration. He will have repeat labs in 1 week to ensure remaining stable. His nausea, vomiting, diarrhea resolved and he was having formed bowel movements and tolerating his diet. He was feeling significantly improved and was very eager for discharge home. I discussed with the patient worrisome signs and symptoms for which to return and he was educated on his medications. Discussed with consulting specialist who was in agreement with plans for discharge. Given the patient's overall improvement, he was determined to no longer require inpatient care and was discharged in hemodynamically stable condition on 06/14/2021. Status at Discharge Functional status at discharge: independent ambulation Overall status at discharge: patient is back to baseline Time Spent with Patient Time attestation: Total time spent providing and/or coordinating discharge services: 40 minutes Time spent: Greater than 30 minutes Exam Narrative: General: Well-nourished, well-appearing 71 year-old male, sitting in a chair by the bed
== END 2021-06-14 12:20 | disposition home or self-care (01) | DRG 684 ==
LOC: ANHED 17:47 → ANH3MEDSUR 19:05
PROVIDERS: Internal Medicine; Internal Medicine Nephrology; Physician Assistant; Admitting Provider Family Medicine; Emergency Provider Emergency Medicine; PCP Family Medicine; Visit Provider Physician Assistant
DX: N17.9 Acute kidney failure, unspecified (principal); N14.1 Nephropathy induced by other drugs, medicaments and biological substances; T39.395A Adverse effect of other nonsteroidal anti-inflammatory drugs [NSAID], initial encounter; T50.2X5A Adverse effect of carbonic-anhydrase inhibitors, benzothiadiazides and other diuretics, initial encounter; T46.5X5A Adverse effect of other antihypertensive drugs, initial encounter; E86.0 Dehydration; R11.2 Nausea with vomiting, unspecified; R19.7 Diarrhea, unspecified; Z20.822 Contact with and (suspected) exposure to COVID-19; E78.2 Mixed hyperlipidemia; I10 Essential (primary) hypertension; G47.33 Obstructive sleep apnea (adult) (pediatric); I73.9 Peripheral vascular disease, unspecified; Z79.82 Long term (current) use of aspirin; Z79.899 Other long term (current) drug therapy; Z86.16 Personal history of COVID-19; Z87.891 Personal history of nicotine dependence; Z95.820 Peripheral vascular angioplasty status with implants and grafts
CPT/HCPCS: 36415; 80048; 80053; 80069; 81001; 81050; 82550; 82570; 83690; 83735; 84100; 84156; 84300; 85014; 85018; 85025; 85027; 96374; 99285; A9270; C9803; J1650; J2405; J7030; U0003; U0005

== ENCOUNTER 2022-11-06 06:45 | Outpatient (CLI) | payer OTHER, SELFPAY ==
--- NOTE | ~2022-11-06 | MR_ITS ---
EXAMINATION: MR lumbar spine wo con DATE: 11/06/2022 07:19 INDICATION: Low back pain, unspecified. TECHNIQUE: Magnetic resonance imaging (MRI) of the lumbar spine was performed without intravenous con trast. Sequences included sagittal T2-weighted FSE, sagittal T2-weighted FS FSE, sagittal T1-weighted FSE, and axial T2-weighted FSE. COMPARISON: Lumbar spine MRI 09/03/2018 FINDINGS: There is 4 degrees levocurvature of lumbar spine. There is 5 mm anterolisthesis of L4 on L5 . There is mild chronic anterior wedging of T11, T12, and L1 vertebral bodies. There is mildly decrea sed disc height at L1-L2, moderately decreased disc height at L2-L3 and L3-L4, mildly decreased disc height at L4-L5. The distal spinal cord signal intensity is normal. The conus medullaris is at L1. Th e following disc levels are specifically discussed: L1-L2: The disc is bulging. There is mild bilateral facet joint osteoarthritis. There is mild bilater al neural foraminal stenosis. There is mild central canal stenosis. L2-L3: The disc is bulging and has an annular fissure. There is mild right and moderate left facet lizet int osteoarthritis. There is moderate bilateral neural foraminal stenosis. There is mild central walt l stenosis. L3-L4: The disc is bulging and has an annular fissure. There is severe bilateral facet joint osteoart hritis. There is moderate bilateral neural foraminal stenosis. There is mild central canal stenosis. L4-L5: The disc is bulging and has an annular fissure. There is severe bilateral facet joint osteoart hritis. There is moderate right and mild left neural foraminal stenosis. There is mild central canal stenosis. L5-S1: The disc is bulging. There is severe bilateral facet joint osteoarthritis. There is mild bilat eral neural foraminal stenosis. There is mild central canal stenosis. IMPRESSION: 1. Moderate lumbar spondylosis, worsened from 09/03/2018. Reviewed, dictated and finalized at location A.
== END 2022-11-06 06:46 | disposition home or self-care (01) ==
PROVIDERS: PCP Family Medicine; Visit Provider Physician Assistant
DX: M47.896 Other spondylosis, lumbar region (principal)
CPT/HCPCS: 72148

== ENCOUNTER 2022-12-10 12:37 | Outpatient (CLI) | payer OTHER, SELFPAY ==
[2022-12-10 13:58] LABS: Alanine Aminotransferase 21 U/L (6-50); Albumin Level 4.4 g/dL (3.5-5.1); Alkaline Phosphatase 50 U/L (38-126); Anion Gap 5 mmol/L (8-16); Aspartate Amino Transferase 26 U/L (17-59); Bilirubin,Total 0.7 mg/dL (0.2-1.3); Blood Urea Nitrogen 34 mg/dL (9-20); Calcium 9.4 mg/dL (8.4-10.2); Carbon Dioxide 29 mmol/L (22-30); Chloride 106 mmol/L (98-107); Estimated Glomerular Filt Rate 55; Glucose 145 mg/dL (65-110); Potassium 4.6 mmol/L (3.4-5.0); Sodium 140 mmol/L (137-145)
== END 2022-12-10 12:38 | disposition home or self-care (01) ==
LOC: ANHLAB 12:38
PROVIDERS: PCP Family Medicine; Visit Provider Family Medicine
DX: R73.01 Impaired fasting glucose (principal); I10 Essential (primary) hypertension
CPT/HCPCS: 36415; 80053; 83036

== ENCOUNTER 2023-06-10 10:57 | Outpatient (CLI) | payer OTHER, SELFPAY ==
--- NOTE | ~2023-06-10 | CT_ITS ---
EXAMINATION: CT lung screening DATE: 06/10/2023 11:14 INDICATION: Personal history of nicotine use TECHNIQUE: Computed tomography (CT) of the chest was performed without intravenous contrast. The dose -length product was 291.29 mGy-cm. Automated exposure control and iterative reconstruction technique were employed. COMPARISON: Chest x-ray dated 06/29/2015 FINDINGS: No significant pleural or pericardial effusion. Heart size normal. No thoracic lymphadenopa thy. There is atherosclerosis. Upper abdomen is unremarkable. No endobronchial lesions. No pneumothor ax. There is calcified granuloma in the right lower lobe. No noncalcified pulmonary nodules or identi fied. No pneumothorax. No endobronchial lesions. Moderate thoracic spondylosis with accentuated kypho sis. IMPRESSION: 1. Lung-RADS category 1: Negative. Continue annual screening with noncontrast low-dose chest CT in 12 months. Reviewed, dictated and finalized at location B. IMPRESSION: 1. Lung-RADS category 1: Negative. Continue annual screening with noncontrast l ow-dose chest CT in 12 months.
== END 2023-06-10 10:58 | disposition home or self-care (01) ==
PROVIDERS: PCP Family Medicine; Visit Provider Family Medicine
DX: Z12.2 Encounter for screening for malignant neoplasm of respiratory organs (principal); Z87.891 Personal history of nicotine dependence
CPT/HCPCS: 71271

== ENCOUNTER 2023-12-14 07:14 | Outpatient (CLI) | payer OTHER, SELFPAY ==
[2023-12-14 08:02] LABS: Alanine Aminotransferase 25 U/L (6-50); Albumin Level 4.4 g/dL (3.5-5.1); Alkaline Phosphatase 60 U/L (38-126); Anion Gap 8 mmol/L (4-12); Aspartate Amino Transferase 28 U/L (17-59); Bilirubin,Total 0.5 mg/dL (0.2-1.3); Blood Urea Nitrogen 28 mg/dL (9-20); Calcium 9.3 mg/dL (8.4-10.2); Carbon Dioxide 25 mmol/L (22-30); Chloride 106 mmol/L (98-107); Estimated Glomerular Filt Rate > 60; Glucose 143 mg/dL (65-110); Potassium 4.9 mmol/L (3.4-5.0); Sodium 139 mmol/L (137-145)
[2023-12-14 08:09] LABS: Hemoglobin A1C 6.4 % (<5.7)
== END 2023-12-14 07:15 | disposition home or self-care (01) ==
PROVIDERS: PCP Family Medicine; Visit Provider Family Medicine
DX: I10 Essential (primary) hypertension (principal); R73.01 Impaired fasting glucose
CPT/HCPCS: 36415; 80053; 83036

== ENCOUNTER 2024-06-03 13:53 | Outpatient (CLI) | payer OTHER, SELFPAY ==
--- OUTSIDE RECORDS SUMMARY | 2024-06-03 14:16 | XMS_ITS | Clinical Summary ---
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 Name Role Phone Unavailable Primary Care Provider Unavailabl e Social History Tobacco Use Types Packs/Day Years Used Date Smoking Tobacco: Never Assessed Sex and Gender Information Value Date Recorded Sex Assigned at Not on file Legal Sex Male 7:25 PM CDT Gender Identity Not on file Sexual Orientation Not on file Plan of Treatment Health Maintenance Due Date Last Done Comments Colorectal Cancer Screening Colonoscopy (10 Years) 1952 Hepatitis C 1970 DTaP, Tdap and Td Vaccines ( 1 - Tdap) 1971 Zoster Vaccines (1 of 2) 2002 Pneumococcal Vaccine: 65+ Ye ars (1 of 1 - PCV) 2017 COVID-19 Vaccine ( - 2023-2 5 season) 2023 Influenza Adult (#1) 2023 RSV Immunization or 60+ Years (1 - 1-dose 75+ series) 2027 Meningococcal B Vaccine Aged Out No l onger eligible based on patient's age to complete this topic Meningococcal Vaccine Aged Out No mello regi eligible based on patient's age to complete this topic RSV Immunizations Under 20 Months Aged Out No longer eligible based on patient's age to complete this topic
--- OUTSIDE RECORDS SUMMARY | 2024-06-03 14:16 | XMS_ITS | Referral Summary ---
Author Organization [facility] at the [facility] Address [address] [place] [address] Care Team Providers Care Psychodramatist Name Role Phone Fritz Cavazos MD Primary Care Provider Jessie Garrison MD Unavailable Allergies No known active allergies Medications fenofibrate nanocrystallized (TRICOR,TRIGLIDE) 145 mg tablet Take 1 tablet (145 mg total) by mouth daily Active ezetimibe-simvastati n (VYTORIN) 10-20 mg per tablet Take 1 tablet by mouth nightly Active aspirin 81 mg enteric coated tablet 1 tablet (81 mg total) [address] (VOLTAREN) 75 mg EC tablet Take 75 mg by mouth 2 (two) times a day Active cholecalciferol (VITAMIN D-3) 25 mcg (1,000 unit) tablet Take 1 tablet (1,000 Units total) by mouth daily Active icosapent ethyL (VASCEPA) 1 gram capsule Take 2 capsules (2 g total) by mouth 2 (two) times a day 120 capsule 3 1 Active glucosamine sulfate 1,000 mg tablet Take by mouth Active naproxen (NAPROSYN) 500 mg tablet Take 1 tablet (500 mg total) by mouth 3 Active carvediloL (COREG) 25 mg tablet Take 1 tablet (25 mg total) by mouth 2 (two) times a day with meals 60 tablet 11 3 Active lisinopriL (PRINIVIL,ZESTRIL) 40 mg tablet Take 1 tablet (40 mg total) by mouth daily 4 Active Active Problems Problem Noted Date Diagnosed Date Aftercare following surgery of the circulatory s PAYTON burnett 01/17/2022 Chronic alcohol use 2020 Sleep apnea treated with nocturnal BiPAP 021 Abdominal aortic aneurysm (AAA) 2020 Assessment & Plan (05/04/2020 8:15 AM [employer]): Impression: Patient continues do well status post endovascular repair of his infrarenal AAA. Aortic duplex surveillance revealed widely patent endo repair with no evidence of endoleak and a kotlik aneurysm sac that is exhibited no interval enlargement. Plan: Recommend ongoing risk factor modifications and follow-up in 6 months for re-evaluation and repeat aortic duplex surveillance. 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 His creatinine is down to 1.1 as per recent labs. He has no urinary symptoms. His renin angiotensin aldosterone blocking drugs as well as amlodipine was stopped. He is also off diclofenac as well as other nonsteroidal anti-inflammatory drugs which he was taking for a long time. He is supposed to get a CT angiogram sometime later this week. This will pose a risk of contrast induced nephropathy. We will recheck his labs next week on Thursday or to ensure he does not sustain further injury. Hydration before and after the procedure will help. History of abdominal aortic aneurysm (AAA) repai r 10/12/2019 Atherosclerotic peripheral v ascular disease with intermittent claudication 01/27/2019 Assessment & Plan (05/04/2020 8:16 AM [employer]): Impression: Stable nondisabling claudication both lower extremities. Lower extremity ABIs revealed stable lower extremity arterial occlusive disease with no worsening progression. Plan: No surgical intervention currently needed. Recommend ongoing risk factor modifications and follow-up in 6 months for re-evaluation and repeat lower extremity arterial Doppler surveillance. Obesity, Class I, BMI 30-34.9 01/27/2019 Renal insufficiency 01/27/2019 Shortness of breath 12/14/2018 Atherosclerosis with claudication of extremity 0 11/12/2018 Assessment & Plan (10/19/2019 3:34 PM CDT): Impression: Stable nondisabling claudication both lower extremities. Lower extremity arterial Doppler surveillance revealed stable disease with no significant progression. Plan: Recommend ongoing risk factor modifications for follow-up in 6 months for re-evaluation and repeat lower extremity arterial Doppler surveillance. Bilateral carotid artery occlusion 11/12/2018 Assessment & Plan (02/07/2024 2:25 PM [employer]): Stable asymptomatic moderate bilateral carotid stenosis. Continue yearly duplex surveillance and anti-platelet therapy. Assessment & Plan (01/23/2023 12:30 PM [employer]): Impression: Patient has stable moderate right internal carotid artery stenosis seen on carotid duplex. He remains asymptomatic. Plan: Continue ongoing risk factor modifications. -patient to follow-up in 1 year for re-evaluation with repeat carotid duplex. Assessment & Plan (05/04/2020 8:17 AM [employer]): Impression: Stable bilateral carotid artery disease following left carotid endarterectomy. He has a mild progression of a left internal carotid restenosis. He remains asymptomatic. Plan: No surgical intervention currently needed. Recommend ongoing risk factor modifications follow-up in 6 months for re-evaluation and repeat carotid duplex surveillance. Assessment & Plan (10/19/2019 3:34 PM CDT): Impression: Patient continues do well status post left carotid endarterectomy in December 2018. Carotid duplex surveillance revealed a stable moderate right internal carotid stenosis measuring 50 79% diameter. Patient remains asymptomatic. Plan: No surgical intervention currently needed. Recommend ongoing risk factor modifications follow-up in 6 months for re-evaluation and repeat carotid duplex surveillance. Assessment & Plan (01/28/2019 1:41 PM [employer]): Impression: Patient recover well status post left carotid endarterectomy. His surgical wounds have healed well and he has had no neurological deficits in the interim. Plan: Patient follow-up in 3 months for re-evaluation and baseline carotid duplex surveillance. Tobacco abuse 11/03/2018 Primary hypertension 11/03/2018 Assessment & Plan (02/07/2024 2:26 PM [employer]): Hypertension chronic controlled. Continue current medical management. Assessment & Plan (01/23/2023 12:30 PM [employer]): Impression: Chronic stable. Plan: Continue carvedilol and losartan Assessment & Plan (05/04/2020 8:27 AM [employer]): Impression: Stable chronic hypertension. Plan: Medication reviewed and recommend continuing daily antihypertensive regimen as directed by his primary care physician. Assessment & Plan (10/12/2019 11:26 AM CDT): Blood pressure goal less than 130/80 mmHg. Currently is above goal. He is on metoprolol 50 mg p.o. b.i.d.. In addition we will add losartan 25 mg daily. He had 0.1 g proteinuria on protein creatinine ratio. I discussed with him sodium restriction and recommended a less than 2300 mg per day diet. I discussed with him the technique of reading nutritional labels to monitor sodium intake. We will see how his blood pressure does with sodium restriction, metoprolol, losartan and then adjust as needed to obtain a optimal control. There is not much more room to increase metoprolol since his pulse rate is around 60. We will increase losartan as the next step on next visit if he is still uncontrolled. Lumbar and sacral osteoarthritis 11/03/2018 AAA (abdominal aortic aneurysm) 11/02/2018 Assessment & Plan (02/07/2024 2:25 PM [employer]): Stent graft in good position no endoleak. Follow up 1 year with duplex surveillance. Assessment & Plan (01/23/2023 12:31 PM [employer]): Impression: Patient is status post endovascular repair of an infrarenal abdominal aortic aneurysms. Arterial duplex reveals a patent stent graft with no endoleak seen with an aneurysms sac measuring 3.7 cm. Plan: Continue ongoing risk factor modifications. -patient follow-up in 1 year for re-evaluation with repeat abdominal aortic duplex. Assessment & Plan (10/19/2019 3:33 PM CDT): Impression: Patient recover well status post endovascular repair of an infrarenal abdominal aortic aneurysm. Baseline CTA surveillance revealed stable endo repair with no evidence of endoleak and a kotlik aneurysm sac which has exhibited interval decrease in size currently measuring 4.1 cm in greatest transverse dimension. Plan: Patient follow-up in 6 months for re-evaluation and repeat CTA surveillance. Osteoarthritis 11/02/2018 Assessment & Plan (10/12/2019 11:27 AM CDT): He was on diclofenac 75 mg twice a day as well as other nonsteroidal agents [id number] for arthritis related pain for several years. I encouraged him to stop both those groups of medicines because of potential nephrotoxicity. I recommended Tylenol or acetaminophen [id number] for his arthritis related pain. If he has pain that is not controlled with Tylenol he can discuss addition of tramadol with his primary care physician. Hypercholesterolemia 11/02/2018 Immunizations Immunization Administration Dates Next Due Influenza, Quad, Adjuvantated, Intramuscular 10/2019 Influenza, Split 01/12/2013 Influenza, Trivalent, High D ose, Split, Preservative Free, Intramuscular 01/14/2019 Social History Tobacco Use Types Packs/Day Years Used Date Smoking Tobacco: Former Cigarettes 0.5 30 0 11/02/1988 - 10/26/2018 Smokeless Tobacco: Never Tobacco Cessation:Counseling Given: Not Answered Alcohol Use Standard Drinks/Week Comments Yes 2 (1 standard drink = 0.6 oz pur e alcohol) AUDIT-C Answer Date Recorded Frequency of Alcohol Consumption 2-4 times a thu11/02/2018 Average Number of Drinks 3 or 4 019 Frequency of Binge Drinking Never 10/15 Sex and Gender Information Value Date Recorded Sex Assigned at Not on file Legal Sex Male 6:28 PM [employer] Gender Identity Not on file Sexual Orientation Not on file Last Filed Vital Signs Vital Sign Reading Time Taken Comments Blood Pressure 166/76 01/27/2024 9:21 AM [employer] Pulse 63 01/27/2024 9:21 AM [employer] Temperature 36.3 C (97.3 F) 12/13/2019 2:15 PM CDT Respiratory Rate - - Oxygen Saturation 95% 07/08/2023 3:32 PM CDT Inhaled Oxygen Concentration - - Weight 112.5 kg (248 lb) 01/27/2024 9:21 AM [employer] Height 177.8 cm (5' 10 ) 01/27/2024 9:21 AM [employer] Body Mass Index 35.58 01/27/2024 9:21 AM [employer] Plan of Treatment Not on file Procedures Procedure Name Priority Date/Time Associated Diagnosis Comments CTA ABDOMEN PELVIS W WO CONTRAST Schedule Routine, Read Routine (OP Routine) 10/14/2019 7:41 AM CDT Aftercare following surgery of the circulatory system from Last 3 Months or Most Recently Relevant to Health Maintenance Results * CTA Abdomen Pelvis (10/14/2019 7:41 AM CDT) Anatomical Region Laterality Modality Body N/A Computed Tomogra phy 10/14/2019 3:38 PM CDT Narrative 10/14/2019 3:54 PM CDT Patient Name: JOSEP DAVIES Ordering Dr: Prince Calvillo MD D.O.B: 1950 Exam Date: 10/14/19740 Age: 69 Sex: Male MR#: [id number] Loc: RADIOLOGY REPORT Order #[id number] CT Scan CTA Abdomen/Pelvis w Contrast Signed EXAM DESCRIPTION: CTA Abdomen/Pelvis w Contrast REASON FOR STUDY: History AAA repair September 12, 2019 for follow-up. Technique: CTA of the abdomen and pelvis performed without and with intravenous and oral contrast using helical scanning technique with dynamic intravenous contrast injection. Precontrast, arterial phase, and portal venous phase images of the abdomen and pelvis were obtained. Reconstructed coronal and sagittal MPR images reviewed. All images stored on PACS. 3D MIP images rendered on scanning unit and reviewed at time of interpretation. Automated exposure control was used as a dose optimization technique for this examination. CONTRAST TYPE/DOSE: 100 mL of Optiray 350 injected via right antecubital fossa vein COMPARISON: CTA dated August 17, 2019 FINDINGS: VASCULATURE NON-CONTRASTED IMAGING: Scattered calcific atherosclerosis is seen. An infrarenal endovascular stent is seen with paired stents seen extending into bilateral common iliac arteries. ABDOMINAL AORTA: The endovascular stent is widely patent without evidence of kinking or migration. On more delayed imaging, there is no evidence of endovascular leak. There is a small pseudoaneurysmal sac measuring a maximum of 4 cm (coronal image 77; previously 4.1 cm). Allowing for difference in technique, this is stable. MESENTERIC/RENAL: The celiac axis and SMA are widely patent. Bilateral single renal arteries. There is moderate right and moderate to severe left renal artery stenosis. No anatomic variation of the mesenteric vessels. PELVIC VASCULATURE: Common/external iliac arteries: No dissection, aneurysm, intramural hematoma, rupture, or penetrating atherosclerotic ulcer. No flow limiting disease. Internal iliac arteries: No dissection, aneurysm or flow limiting disease. ABDOMEN/PELVIS LOWER CHEST: No significant pulmonary abnormalities. No effusion. LIVER: Normal size. Diffuse hepatic hypoattenuation compatible with steatosis. No identified cystic or solid masses. GALLBLADDER: No stones identified. No wall thickening or inflammatory changes. BILE DUCTS: No intrahepatic or extrahepatic ductal dilatation. SPLEEN: Normal size. No focal lesions. PANCREAS: No identified cystic or solid masses. No significant calcifications. No adjacent inflammation or peripancreatic fluid collections. Pancreatic duct not dilated. ADRENALS: The right adrenal gland appears unremarkable. Minimal nodularity of the left adrenal gland. KIDNEYS/URINARY TRACT: No identified significant cystic or solid masses. No stones. No hydronephrosis or hydroureter. Symmetric enhancement. Normal bladder. GI: No dilated bowel loops. No obvious wall thickening. There is uncomplicated diverticulosis. PERITONEUM: No ascites or free air. RETROPERITONEUM: No mass or adenopathy. REPRODUCTIVE: No significant abnormality. MUSCULOSKELETAL: No acute findings. Postsurgical changes are noted in the inguinal regions bilaterally from recent percutaneous intervention. OTHER: No other abnormality. IMPRESSION: 1. AAA status post endovascular stenting as detailed above without complication. The pseudoaneurysmal sac is stable in size. 2. Bilateral single renal arteries. Moderate right and moderate to severe left renal artery stenosis. 3. Hepatic steatosis 4. Uncomplicated diverticulosis. 5. Postsurgical changes in the inguinal regions bilaterally. THIS IS AN ELECTRONICALLY VERIFIED FINAL REPORT 10/14/2019 3:54 PM - Electronically signed by Vinod URBAN Report ID: [id number] Reading Location: [place] [id number] REPORT ELECTRONICALLY SIGNED IN OTHER VENDOR SYSTEM Resulting Agency Comment O Procedure Note Vinod Pineda MD - 10/14/2019 Patient Name: JOSEP DAVIES Dr: Prnice Calvillo MD D.O.B: 1950 Exam Date: 10/14/19 0741 Age: 69 Sex: Male MR#: [id number] Loc: RADIOLOGY REPORT Order #[id number] CT Scan CTA Abdomen/Pelvis w Contrast Signed EXAM DESCRIPTION: CTA Abdomen/Pelvis w Contrast REASON FOR STUDY: History AAA repair September 12, 2019 for follow-up. Technique: CTA of the abdomen and pelvis performed without and with intravenous and oral contrast using helical scanning technique withdynamic intravenous contrast injection. Precontrast, arterial phase, and portal venous phase images of the abdomen and pelvis were obtained.Reconstructed coronal and sagittal MPR images reviewed. All images stored on PACS.3D MIP images rendered on scanning unit and reviewed at time ofinterpretation. Automated exposure control was used as a dose optimization technique forthis examination. CONTRAST TYPE/DOSE: 100 mL of Optiray 350 injected via rightantecubital fossa vein COMPARISON: CTA dated August 17, 2019 FINDINGS: VASCULATURE NON-CONTRASTED IMAGING: Scattered calcific atherosclerosis is seen. An infrarenal endovascular stent is seen with paired stents seen extendinginto bilateral common iliac arteries. ABDOMINAL AORTA: The endovascular stent is widely patent without evidenceof kinking or migration. On more delayed imaging, there is no evidence of endovascular leak. There is a small pseudoaneurysmal sac measuring amaximum of 4 cm (coronal image 77; previously 4.1 cm). Allowing for differencein technique, this is stable. MESENTERIC/RENAL: The celiac axis and SMA are widely patent. Bilateral single renal arteries. There is moderate right and moderate to severeleft renal artery stenosis. No anatomic variation of the mesenteric vessels. PELVIC VASCULATURE: Common/external iliac arteries: No dissection, aneurysm, intramuralhematoma, rupture, or penetrating atherosclerotic ulcer. No flow limiting disease. Internal iliac arteries: No dissection, aneurysm or flow limitingdisease. ABDOMEN/PELVIS LOWER CHEST: No significant pulmonary abnormalities. No effusion. LIVER: Normal size. Diffuse hepatic hypoattenuation compatible with steatosis. No identified cystic or solid masses. GALLBLADDER: No stones identified. No wall thickening or inflammatorychanges. BILE DUCTS: No intrahepatic or extrahepatic ductal dilatation. SPLEEN: Normal size. No focal lesions. PANCREAS: No identified cystic or solid masses. No significant calcifications. No adjacent inflammation or peripancreatic fluidcollections. Pancreatic duct not dilated. ADRENALS: The right adrenal gland appears unremarkable. Minimalnodularity of the left adrenal gland. KIDNEYS/URINARY TRACT: No identified significant cystic or solid masses.No stones. No hydronephrosis or hydroureter. Symmetric enhancement. Normal bladder. GI: No dilated bowel loops. No obvious wall thickening. There is uncomplicated diverticulosis. PERITONEUM: No ascites or free air. RETROPERITONEUM: No mass or adenopathy. REPRODUCTIVE: No significant abnormality. MUSCULOSKELETAL: No acute findings. Postsurgical changes are noted inthe inguinal regions bilaterally from recent percutaneous intervention. OTHER: No other abnormality. IMPRESSION: 1. AAA status post endovascular stenting as detailed above without complication. The pseudoaneurysmal sac is stable in size. 2. Bilateral single renal arteries. Moderate right and moderate tosevere left renal artery stenosis. 3. Hepatic steatosis 4. Uncomplicated diverticulosis. 5. Postsurgical changes in the inguinal regions bilaterally. THIS IS AN ELECTRONICALLY VERIFIED FINAL REPORT 10/14/2019 3:54 PM - Electronically signed by Vinod URBAN Report ID: [id number] Reading Location: [place] [address] REPORT ELECTRONICALLY SIGNED IN OTHER VENDOR SYSTEM Prince Calvillo MD IMG CT PROCEDURES Final Res ult from Last 3 Months or Most Recently Relevant to Health Maintenance Insurance [facility] Care Teams Psychodramatist Relationship Specialty Start Date End Date Fritz Cavazos MD [address] [address] PCP - General Family Medicine 10/29/18 Jessie Garrison MD [address] [address] Moisture Conditioner Operator Cardiology 01/31/19
--- OUTSIDE RECORDS SUMMARY | 2024-06-03 14:16 | XMS_ITS | Clinical Summary ---
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 Aortic duplex surveillance revealed widely patent endo repair with no evidence of endoleak and a [place] aneurysm sac that is exhibited no interval enlargement. Plan: Recommend ongoing risk factor modifications and follow-up in 6 months for re-evaluation and repeat aortic duplex surveillance. Acute kidney injury 2020 Atherosclerosis of artery 2020 Coronary arteriosclerosis in [place] artery 04/24 JESSIE (acute kidney injury) 10/12/2019 [...] 01/27/2019 Assessment & Plan (05/04/2020 8:16 AM MOLDING SANDER): Impression: Stable nondisabling claudication both lower extremities. [...] 11/12/2018 Assessment & Plan (02/07/2024 2:25 PM MOLDING SANDER): Stable asymptomatic moderate bilateral carotid stenosis. Continue yearly duplex surveillance and anti-platelet therapy. Assessment & Plan (01/23/2023 12:30 PM MOLDING SANDER): Impression: Patient has stable moderate right internal carotid artery stenosis seen on carotid duplex. He remains asymptomatic. Plan: Continue ongoing risk factor modifications. -patient to follow-up in 1 year for re-evaluation with repeat carotid duplex. Assessment & Plan (05/04/2020 8:17 AM MOLDING SANDER): Impression: Stable bilateral carotid artery disease following [...] surveillance. Assessment & Plan (01/28/2019 1:41 PM MOLDING SANDER): Impression: Patient recover well status post left carotid endarterectomy. His surgical wounds have healed well and he has had no neurological deficits in the interim. Plan: Patient follow-up in 3 months for re-evaluation and baseline carotid duplex surveillance. Tobacco abuse 11/03/2018 Primary hypertension 11/03/2018 Assessment & Plan (02/07/2024 2:26 PM MOLDING SANDER): Hypertension chronic controlled. Continue current medical management. Assessment & Plan (01/23/2023 12:30 PM MOLDING SANDER): Impression: Chronic stable. Plan: Continue carvedilol and losartan Assessment & Plan (05/04/2020 8:27 AM MOLDING SANDER): Impression: Stable chronic hypertension. Plan: Medication reviewed [...] 11/02/2018 Assessment & Plan (02/07/2024 2:25 PM MOLDING SANDER): Stent graft in good position no endoleak. Follow up 1 year with duplex surveillance. Assessment & Plan (01/23/2023 12:31 PM MOLDING SANDER): Impression: Patient is status post endovascular repair [...] with no evidence of endoleak and a [place] aneurysm sac which has exhibited interval decrease in size currently measuring 4.1 cm in greatest transverse dimension. Plan: Patient follow-up in 6 months for re-evaluation and repeat CTA surveillance. Osteoarthritis 11/02/2018 Assessment & Plan (10/12/2019 11:27 AM CDT): He was on diclofenac 75 mg twice a day as well as other nonsteroidal agents aexq-kgs-ynjiuwl for arthritis related pain for several years. I encouraged him to stop both those groups of medicines because of potential nephrotoxicity. I recommended Tylenol or acetaminophen leuh-wwu-dddopnj for his arthritis related pain. If he has pain that is not controlled with Tylenol he can discuss addition of tramadol with his primary care physician. Hypercholesterolemia 11/02/2018 Immunizations Immunization Administration Dates Next Due Influenza, Quad, Adjuvantated, Intramuscular 10/2019 Influenza, Split 01/12/2013 Influenza, Trivalent, High D ose, Split, Preservative Free, Intramuscular 01/14/2019 Surgical History Surgery Date Site/Laterality Comments APPENDECTOMY POSTERIOR FUSION CLIVUS-C2 TRANSARTICULAR STEALTH GUIDED W/ ICBG CARPAL TUNNEL RELEASE CAROTID ENARTERECTOMYY 01/12/2019 Left CARDIAC CATHETERIZATION CAROTID ENDARTERECTOMY AORTIC ILIAC FEMORIAL ANGIOG ALTAGRACIA INTERVENTION 08/10/2019 Bilateral ABDOMINAL AORTIC ANEURYSM RE PAIR W/ ENDOLUMINAL GRAFT 09/12/2019 Dr. Calvillo, Dr. Hyatt asst. Medical History Medical History Date Comments Obesity Hyperlipidemia Sleep apnea Allergic rhinitis Testicular hypofunction Osteoarthrosis Pure hyperglyceridemia Hypertension Family History Medical History Relation Name Comments Dementia Father Parkinsonism Father Diabetes Mother Heart disease Mother Stroke Mother Relation Name Status Comments Father Alive Mother Sister 1 Alive Sister 2 Alive Social History Tobacco Use Types Packs/Day Years [...] on file Legal Sex Male 6:28 PM MOLDING SANDER Gender Identity Not on file Sexual Orientation Not on file Obstetrics History Last Filed Vital Signs Vital Sign Reading Time Taken Comments Blood Pressure 166/76 01/27/2024 9:21 AM MOLDING SANDER Pulse 63 01/27/2024 9:21 AM MOLDING SANDER Temperature 36.3 C (97.3 F) 12/13/2019 2:15 PM CDT Respiratory Rate - - Oxygen Saturation 95% 07/08/2023 3:32 PM CDT Inhaled Oxygen Concentration - - Weight 112.5 kg (248 lb) 01/27/2024 9:21 AM MOLDING SANDER Height 177.8 cm (5' 10 ) 01/27/2024 9:21 AM MOLDING SANDER Body Mass Index 35.58 01/27/2024 9:21 AM MOLDING SANDER Plan of Treatment Health Maintenance Due Date Last Done Comments Colon Cancer Screening-Colonoscopy 1950 Depression Screening 1950 Fall Risk Assessment 1950 Hepatitis C Screening 1950 DTaP/Tdap/Td Vaccine (1 - Tdap) 1963 Hepatitis B Screening 1970 Pneumococcal vaccine 65+ (1 of 1 - PCV) 2002 Zoster Vaccine (1 of 2) 2002 Well Visit 65+ 2017 Influenza Vaccine (#1) 2023 0, 01/14/2019, 01/12/2013 Abdominal Aortic Aneurysm (A AA) Screen Completed 01/27/2024, 01/27/2024, 01/22/2023, Additional history exists Procedures Procedure Name Priority Date/Time Associated Diagnosis [...] Name: JOSEP DAVIES Ordering Dr: Prince Calvillo MDOValarieB: 1950 Exam Date: 10/14/19 0741 Age: 69 Sex: Male MR#: [id number] Loc: RADIOLOGY REPORT Order #[id number] CT Scan CTA Abdomen/Pelvis w Contrast Signed [...] 3:54 PM - Electronically signed by Vinod FortuneD. JA Report ID: [id number] Reading Location: [id number] REPORT ELECTRONICALLY SIGNED IN OTHER VENDOR SYSTEM Resulting Agency Comment O Procedure Note Vinod Pineda MD - 10/14/2019 Patient Name: JOSEP DAVIES Dr: Prince Calvillo MD D.O.B: 1950 Exam Date: 10/14/19 0741 Age: 69 Sex: Male MR#: [id number] Loc: RADIOLOGY REPORT Order #[id number] CT Scan CTA Abdomen/Pelvis w Contrast Signed [...] Electronically signed by Vinod URBAN Report ID: [id number] Reading Location: [id number] REPORT ELECTRONICALLY SIGNED IN OTHER VENDOR SYSTEM Prince Calvillo MD IMG CT PROCEDURES Final Res ult from Last 3 Months or Most Recently Relevant to Health Maintenance Insurance [facility] Care Teams Health Policy Manager Relationship Specialty Start Date End Date Fritz Cavazos MD [address] [place] [address] PCP - General Family Medicine 10/29/18 Jessie Garrison MD [address] [place] [address] Mental Hygienist Cardiology 01/31/19
[2024-06-03 14:33] LABS: Hematocrit 44.1 % (42.0-52.0); Hemoglobin 14.2 g/dL (14.0-18.0); Mean Corpuscular HGB Conc 32.2 g/dl (32-36); Mean Corpuscular Hemoglobin 30.6 pg (26-34); Mean Platelet Volume 10.7 fl (7.4-10.4); Platelet Count Result 173 k/mm3 (150-375); Red Blood Count 4.64 M/mm3 (4.6-6.20); Red Cell Distribution Width 13.4 % (11.5-14.5); White Blood Count 5.8 K/mm3 (4.5-10.0)
[2024-06-03 14:34] LABS: Add Urine Microscopic? NO; Appearance Urine Clear (Clear); Bilirubin Urine Negative (Negative); Blood Urine Negative (Negative); Color Urine Yellow (Yellow); Glucose Urine UA Negative (Negative); Ketones Urine Negative (Negative); Leukocyte Esterase Ur Negative LEU/UL (Negative); Nitrate Urine Negative (Negative); Protein Urine Negative (Negative); Specific Grav Ur 1.022 (1.001-1.035); Urobilinogen Urine 0.2 mg/dL (<2.0)
[2024-06-03 14:43] LABS: Alanine Aminotransferase 25 U/L (6-50); Albumin Level 4.8 g/dL (3.5-5.1); Alkaline Phosphatase 55 U/L (38-126); Anion Gap 8 mmol/L (4-12); Aspartate Amino Transferase 28 U/L (17-59); Bilirubin,Total 0.5 mg/dL (0.2-1.3); Blood Urea Nitrogen 37 mg/dL (9-20); Carbon Dioxide 25 mmol/L (22-30); Chloride 109 mmol/L (98-107); Cholesterol 127 mg/dL (0-200); Estimated Glomerular Filt Rate 52; Glucose 102 mg/dL (65-110); HDL Direct 25 mg/dL; Potassium 5.9 mmol/L (3.4-5.0); Sodium 142 mmol/L (137-145); Triglycerides 282 mg/dL (<150)
[2024-06-03 14:47] LABS: Hemoglobin A1C 6.2 % (<5.7)
[2024-06-03 14:56] LABS: LDL Cholesterol Direct 48 mg/dL
[2024-06-03 15:19] LABS: Prostate Specific Antigen 0.7 ng/mL (< OR = 4.0)
== END 2024-06-03 13:54 | disposition home or self-care (01) ==
LOC: ANHLAB 13:59
PROVIDERS: PCP Family Medicine; Visit Provider Family Medicine
DX: I10 Essential (primary) hypertension (principal); I25.10 Atherosclerotic heart disease of native coronary artery without angina pectoris; E78.2 Mixed hyperlipidemia; R73.01 Impaired fasting glucose; R35.1 Nocturia; Z12.5 Encounter for screening for malignant neoplasm of prostate
CPT/HCPCS: 36415; 80053; 80061; 81003; 83036; 84153; 84443; 85027

== ENCOUNTER 2024-06-24 14:01 | Outpatient (CLI) | payer OTHER, SELFPAY ==
--- OUTSIDE RECORDS SUMMARY | 2024-06-24 14:04 | XMS_ITS | Clinical Summary ---
Author Organization [facility] at the [facility] Office Center Address [address] [place] [address] Care Team Providers Care Barrel Lapper Name Role Phone Fritz Cavazos MD Primary Care Provider Jessie Garrison MD Unavailable [phone] Allergies No known active allergies Medications fenofibrate [...] 2020 Assessment & Plan (05/04/2020 8:15 AM WIRELINE SUPERVISOR): Impression: Patient continues do well status post endovascular repair of his infrarenal AAA. Aortic duplex surveillance revealed widely patent endo repair with no evidence of endoleak and a [place] aneurysm sac that is exhibited no interval enlargement. Plan: Recommend ongoing risk factor modifications and follow-up in 6 months for re-evaluation and repeat aortic duplex surveillance. Acute kidney injury 2020 Atherosclerosis of artery 2020 Coronary arteriosclerosis in [place] artery 04/24 JESSIE (acute kidney injury) 10/12/2019 [...] 01/27/2019 Assessment & Plan (05/04/2020 8:16 AM WIRELINE SUPERVISOR): Impression: Stable nondisabling claudication both lower extremities. [...] 11/12/2018 Assessment & Plan (02/07/2024 2:25 PM WIRELINE SUPERVISOR): Stable asymptomatic moderate bilateral carotid stenosis. Continue yearly duplex surveillance and anti-platelet therapy. Assessment & Plan (01/23/2023 12:30 PM WIRELINE SUPERVISOR): Impression: Patient has stable moderate right internal carotid artery stenosis seen on carotid duplex. He remains asymptomatic. Plan: Continue ongoing risk factor modifications. -patient to follow-up in 1 year for re-evaluation with repeat carotid duplex. Assessment & Plan (05/04/2020 8:17 AM WIRELINE SUPERVISOR): Impression: Stable bilateral carotid artery disease following [...] surveillance. Assessment & Plan (01/28/2019 1:41 PM WIRELINE SUPERVISOR): Impression: Patient recover well status post left carotid endarterectomy. His surgical wounds have healed well and he has had no neurological deficits in the interim. Plan: Patient follow-up in 3 months for re-evaluation and baseline carotid duplex surveillance. Tobacco abuse 11/03/2018 Primary hypertension 11/03/2018 Assessment & Plan (02/07/2024 2:26 PM WIRELINE SUPERVISOR): Hypertension chronic controlled. Continue current medical management. Assessment & Plan (01/23/2023 12:30 PM WIRELINE SUPERVISOR): Impression: Chronic stable. Plan: Continue carvedilol and losartan Assessment & Plan (05/04/2020 8:27 AM WIRELINE SUPERVISOR): Impression: Stable chronic hypertension. Plan: Medication reviewed [...] 11/02/2018 Assessment & Plan (02/07/2024 2:25 PM WIRELINE SUPERVISOR): Stent graft in good position no endoleak. Follow up 1 year with duplex surveillance. Assessment & Plan (01/23/2023 12:31 PM WIRELINE SUPERVISOR): Impression: Patient is status post endovascular repair [...] with no evidence of endoleak and a [place] aneurysm sac which has exhibited interval decrease in size currently measuring 4.1 cm in greatest transverse dimension. Plan: Patient follow-up in 6 months for re-evaluation and repeat CTA surveillance. Osteoarthritis 11/02/2018 Assessment & Plan (10/12/2019 11:27 AM CDT): He was on diclofenac 75 mg twice a day as well as other nonsteroidal agents ejli-qfq-taewyuu for arthritis related pain for several years. I encouraged him to stop both those groups of medicines because of potential nephrotoxicity. I recommended Tylenol or acetaminophen rvxf-nrg-akocshq for his arthritis related pain. If he [...] on file Legal Sex Male 6:28 PM WIRELINE SUPERVISOR Gender Identity Not on file Sexual Orientation Not on file Obstetrics History Last Filed Vital Signs Vital Sign Reading Time Taken Comments Blood Pressure 166/76 01/27/2024 9:21 AM WIRELINE SUPERVISOR Pulse 63 01/27/2024 9:21 AM WIRELINE SUPERVISOR Temperature 36.3 C (97.3 F) 12/13/2019 2:15 PM CDT Respiratory Rate - - Oxygen Saturation 95% 07/08/2023 3:32 PM CDT Inhaled Oxygen Concentration - - Weight 112.5 kg (248 lb) 01/27/2024 9:21 AM WIRELINE SUPERVISOR Height 177.8 cm (5' 10 ) 01/27/2024 9:21 AM WIRELINE SUPERVISOR Body Mass Index 35.58 01/27/2024 9:21 AM WIRELINE SUPERVISOR Plan of Treatment Health Maintenance Due Date [...] 10/14/19 0741 Age: 69 Sex: Male MR#: [id number] Loc: RADIOLOGY REPORT Order #[id number] CT Scan CTA Abdomen/Pelvis w Contrast Signed [...] signed by Vinod FortuneD. JA Report ID: [id number] Reading Location: [id number] REPORT ELECTRONICALLY SIGNED IN OTHER VENDOR SYSTEM Resulting Agency Comment O Procedure Note Vinod Pineda MD - 10/14/2019 Patient Name: JOSEP DAVIES Dr: Prince Calvillo MD D.O.B: 1950 Exam Date: 10/14/19 0741 Age: 69 Sex: Male MR#: [id number] Loc: RADIOLOGY REPORT Order #[id number] CT Scan CTA Abdomen/Pelvis w Contrast Signed [...] Electronically signed by Vinod URBAN Report ID: [id number] Reading Location: [id number] REPORT ELECTRONICALLY SIGNED IN OTHER VENDOR SYSTEM Prince Calvillo MD IMG CT PROCEDURES Final Res ult from Last 3 Months or Most Recently Relevant to Health Maintenance Insurance [facility] Care Teams Barrel Lapper Relationship Specialty Start Date End Date Fritz Cavazos MD [address] [place] [address] PCP - General Family Medicine 10/29/18 Jessie Garrison MD [address] [place] [address] Cleaning And Washing Equipment Operator Cardiology 01/31/19
--- OUTSIDE RECORDS SUMMARY | 2024-06-24 14:04 | XMS_ITS | Continuity of Care Document ---
Author Organization [facility] Address [address] [place] [address] Phone Care Team Providers Care Fire Fighter Name Role Phone Jose Carlos Ernandez DO Unavailable Unavailable Advance Directives Directive Yes / No Effective Date File Name No Information Encounters Encounter Description Practice Location Reason(s) For Visit Diagnoses Date Provider Providers Copied on Encounter [facility], [address], [place], [place], [id number], [place] tel:[phone] [facility] No Information Awais Almendarez. [address] [facility], [place], [address], [place]. tel: [phone] Family History Family Member Type Diagnosis Age At Onset No Information Payers Payer name Insurance type Covered republican ID Authoriza tijennifer(s) Benjamin Bellalexia Salazar [id number] Social History Type Description Quantity Date Captured Comments Sex Male Smoking Status No Information Chief Complaint And Reason For Visit No Information Reason For Referral Reason For Referral No Information History Of Present Illness Encounter Date Complaint History Of Prese nt Illness No Information Functional Status Date Functional Assessmen t No Information Instructions Date Instruction Additional Infor mation No Information Assessments Type Assessment Date No Information Patient Care Teams Name Effective Dates (start - stop) Status Members No Information
--- OUTSIDE RECORDS SUMMARY | 2024-06-24 14:04 | XMS_ITS | Clinical Summary ---
Author Organization [facility] Address [address] [place] [address] Care Team Providers Care Hose Builder Name Role Phone Unavailable Primary Care Provider [...] Vaccine ( - 2023-2 5 season) 2023 RSV Immunization or 60+ Years (1 [...]
--- OUTSIDE RECORDS SUMMARY | 2024-06-24 14:04 | XMS_ITS | Referral Summary ---
Author Organization [facility] at the [facility] Office Center Address [address] [place] [address] Care Team Providers Care Oil Plant Operator Name Role Phone Fritz Cavazos MD Primary Care Provider Jessie Garrison MD Unavailable [phone] Allergies No known active allergies Medications fenofibrate [...] 2020 Assessment & Plan (05/04/2020 8:15 AM DIRECTOR OF RESEARCH CENTER): Impression: Patient continues do well status post endovascular repair of his infrarenal AAA. Aortic duplex surveillance revealed widely patent endo repair with no evidence of endoleak and a [place] aneurysm sac that is exhibited no interval enlargement. Plan: Recommend ongoing risk factor modifications and follow-up in 6 months for re-evaluation and repeat aortic duplex surveillance. Acute kidney injury 2020 Atherosclerosis of artery 2020 Coronary arteriosclerosis in [place] artery 04/24 JESSIE (acute kidney injury) 10/12/2019 [...] 01/27/2019 Assessment & Plan (05/04/2020 8:16 AM DIRECTOR OF RESEARCH CENTER): Impression: Stable nondisabling claudication both lower extremities. [...] 11/12/2018 Assessment & Plan (02/07/2024 2:25 PM DIRECTOR OF RESEARCH CENTER): Stable asymptomatic moderate bilateral carotid stenosis. Continue yearly duplex surveillance and anti-platelet therapy. Assessment & Plan (01/23/2023 12:30 PM DIRECTOR OF RESEARCH CENTER): Impression: Patient has stable moderate right internal carotid artery stenosis seen on carotid duplex. He remains asymptomatic. Plan: Continue ongoing risk factor modifications. -patient to follow-up in 1 year for re-evaluation with repeat carotid duplex. Assessment & Plan (05/04/2020 8:17 AM DIRECTOR OF RESEARCH CENTER): Impression: Stable bilateral carotid artery disease following [...] surveillance. Assessment & Plan (01/28/2019 1:41 PM DIRECTOR OF RESEARCH CENTER): Impression: Patient recover well status post left carotid endarterectomy. His surgical wounds have healed well and he has had no neurological deficits in the interim. Plan: Patient follow-up in 3 months for re-evaluation and baseline carotid duplex surveillance. Tobacco abuse 11/03/2018 Primary hypertension 11/03/2018 Assessment & Plan (02/07/2024 2:26 PM DIRECTOR OF RESEARCH CENTER): Hypertension chronic controlled. Continue current medical management. Assessment & Plan (01/23/2023 12:30 PM DIRECTOR OF RESEARCH CENTER): Impression: Chronic stable. Plan: Continue carvedilol and losartan Assessment & Plan (05/04/2020 8:27 AM DIRECTOR OF RESEARCH CENTER): Impression: Stable chronic hypertension. Plan: Medication reviewed [...] 11/02/2018 Assessment & Plan (02/07/2024 2:25 PM DIRECTOR OF RESEARCH CENTER): Stent graft in good position no endoleak. Follow up 1 year with duplex surveillance. Assessment & Plan (01/23/2023 12:31 PM DIRECTOR OF RESEARCH CENTER): Impression: Patient is status post endovascular repair [...] with no evidence of endoleak and a [place] aneurysm sac which has exhibited interval decrease in size currently measuring 4.1 cm in greatest transverse dimension. Plan: Patient follow-up in 6 months for re-evaluation and repeat CTA surveillance. Osteoarthritis 11/02/2018 Assessment & Plan (10/12/2019 11:27 AM CDT): He was on diclofenac 75 mg twice a day as well as other nonsteroidal agents ewul-zsh-jmtordg for arthritis related pain for several years. I encouraged him to stop both those groups of medicines because of potential nephrotoxicity. I recommended Tylenol or acetaminophen mrne-duv-rtajvtv for his arthritis related pain. If he [...] on file Legal Sex Male 6:28 PM DIRECTOR OF RESEARCH CENTER Gender Identity Not on file Sexual Orientation Not on file Last Filed Vital Signs Vital Sign Reading Time Taken Comments Blood Pressure 166/76 01/27/2024 9:21 AM DIRECTOR OF RESEARCH CENTER Pulse 63 01/27/2024 9:21 AM DIRECTOR OF RESEARCH CENTER Temperature 36.3 C (97.3 F) 12/13/2019 2:15 PM CDT Respiratory Rate - - Oxygen Saturation 95% 07/08/2023 3:32 PM CDT Inhaled Oxygen Concentration - - Weight 112.5 kg (248 lb) 01/27/2024 9:21 AM DIRECTOR OF RESEARCH CENTER Height 177.8 cm (5' 10 ) 01/27/2024 9:21 AM DIRECTOR OF RESEARCH CENTER Body Mass Index 35.58 01/27/2024 9:21 AM DIRECTOR OF RESEARCH CENTER Plan of Treatment Not on file Procedures [...] Date: 10/14/19740 Age: 69 Sex: Male MR#: [id number] Loc: RADIOLOGY REPORT Order #[id number] CT Scan CTA Abdomen/Pelvis w Contrast Signed [...] Electronically signed by Vinod URBAN Report ID: [id number] Reading Location: [place] [address] REPORT ELECTRONICALLY SIGNED IN OTHER VENDOR SYSTEM Resulting Agency Comment O Procedure Note Vinod Pineda MD - 10/14/2019 Patient Name: JOSEP DAVIES Dr: Prince Calvillo MD D.O.B: 1950 Exam Date: 10/14/19 0741 Age: 69 Sex: Male MR#: [id number] Loc: RADIOLOGY REPORT Order #[id number] CT Scan CTA Abdomen/Pelvis w Contrast Signed [...] Electronically signed by Vinod URBAN Report ID: [id number] Reading Location: [place] [address] REPORT ELECTRONICALLY SIGNED IN OTHER VENDOR SYSTEM Prince Calvillo MD IMG CT PROCEDURES Final Res ult from Last 3 Months or Most Recently Relevant to Health Maintenance Insurance [facility] Care Teams Oil Plant Operator Relationship Specialty Start Date End Date Fritz Cavazos MD [address] [address] PCP - General Family Medicine 10/29/18 Jessie Garrison MD [address] [address] Product Controller Cardiology 01/31/19
[2024-06-24 15:20] LABS: Anion Gap 12 mmol/L (4-12); Blood Urea Nitrogen 35 mg/dL (9-20); Calcium 9.2 mg/dL (8.4-10.2); Carbon Dioxide 23 mmol/L (22-30); Chloride 105 mmol/L (98-107); Estimated Glomerular Filt Rate 53; Glucose 78 mg/dL (65-110); Potassium 5.2 mmol/L (3.4-5.0); Sodium 140 mmol/L (137-145)
== END 2024-06-24 14:02 | disposition home or self-care (01) ==
LOC: ANHLAB 14:02
PROVIDERS: PCP Family Medicine; Visit Provider Physician Assistant
DX: E87.5 Hyperkalemia (principal)
CPT/HCPCS: 36415; 80048

== ENCOUNTER 2024-07-13 12:20 | Outpatient (CLI) | payer OTHER, SELFPAY ==
--- OUTSIDE RECORDS SUMMARY | 2024-07-13 13:22 | XMS_ITS | Continuity of Care Document ---
Author Organization [facility] Address [address] [place] [address] [place] [address] Phone Care Team Providers Care Filter Tank Operator Name Role Phone Jose Carlos Ernandez DO Unavailable Unavailable Advance Directives Directive Yes / No Effective Date File Name No Information Encounters Encounter Description Practice Location Reason(s) For Visit Diagnoses Date Provider Providers Copied on Encounter [facility], [address], [place], [place], [id number], [place] tel:[phone] [facility] No Information Awais Almendarez. [address] [facility], [place], [address], [place]. tel: [phone] Family History Family Member Type Diagnosis Age At Onset No Information Payers Payer name Insurance type Covered alliance party ID Authoriza tijennifer(s) Benjamin Bellalexia Salazar [id number] Social History Type Description Quantity Date Captured [...]
--- OUTSIDE RECORDS SUMMARY | 2024-07-13 13:22 | XMS_ITS | Clinical Summary ---
Author Organization [facility] Address [address] [place] [address] Care Team Providers Care Sheriff'S Officer Name Role Phone Unavailable Primary Care Provider [...] Td Vaccines ( 1 - Tdap) 1971 Pneumococcal Vaccine: 50+ Ye ars (1 of 1 - PCV) 2002 Zoster Vaccines (1 of 2) 2002 COVID-19 Vaccine ( - 2023-2 5 season) [...]
--- OUTSIDE RECORDS SUMMARY | 2024-07-13 13:22 | XMS_ITS | Referral Summary ---
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 Aortic duplex surveillance revealed widely patent endo repair with no evidence of endoleak and a kiana aneurysm sac that is exhibited no interval enlargement. Plan: Recommend ongoing risk factor modifications and follow-up in 6 months for re-evaluation and repeat aortic duplex surveillance. Acute kidney injury 2020 Atherosclerosis of artery 2020 Coronary arteriosclerosis in kiana artery 04/24 JESSIE (acute kidney injury) 10/12/2019 [...] 01/27/2019 Assessment & Plan (05/04/2020 8:16 AM COMMERCIAL FINANCE ANALYST): Impression: Stable nondisabling claudication both lower extremities. [...] 11/12/2018 Assessment & Plan (02/07/2024 2:25 PM COMMERCIAL FINANCE ANALYST): Stable asymptomatic moderate bilateral carotid stenosis. Continue yearly duplex surveillance and anti-platelet therapy. Assessment & Plan (01/23/2023 12:30 PM COMMERCIAL FINANCE ANALYST): Impression: Patient has stable moderate right internal carotid artery stenosis seen on carotid duplex. He remains asymptomatic. Plan: Continue ongoing risk factor modifications. -patient to follow-up in 1 year for re-evaluation with repeat carotid duplex. Assessment & Plan (05/04/2020 8:17 AM COMMERCIAL FINANCE ANALYST): Impression: Stable bilateral carotid artery disease following [...] surveillance. Assessment & Plan (01/28/2019 1:41 PM COMMERCIAL FINANCE ANALYST): Impression: Patient recover well status post left carotid endarterectomy. His surgical wounds have healed well and he has had no neurological deficits in the interim. Plan: Patient follow-up in 3 months for re-evaluation and baseline carotid duplex surveillance. Tobacco abuse 11/03/2018 Primary hypertension 11/03/2018 Assessment & Plan (02/07/2024 2:26 PM COMMERCIAL FINANCE ANALYST): Hypertension chronic controlled. Continue current medical management. Assessment & Plan (01/23/2023 12:30 PM COMMERCIAL FINANCE ANALYST): Impression: Chronic stable. Plan: Continue carvedilol and losartan Assessment & Plan (05/04/2020 8:27 AM COMMERCIAL FINANCE ANALYST): Impression: Stable chronic hypertension. Plan: Medication reviewed [...] 11/02/2018 Assessment & Plan (02/07/2024 2:25 PM COMMERCIAL FINANCE ANALYST): Stent graft in good position no endoleak. Follow up 1 year with duplex surveillance. Assessment & Plan (01/23/2023 12:31 PM COMMERCIAL FINANCE ANALYST): Impression: Patient is status post endovascular repair [...] with no evidence of endoleak and a kiana aneurysm sac which has exhibited interval decrease in size currently measuring 4.1 cm in greatest transverse dimension. Plan: Patient follow-up in 6 months for re-evaluation and repeat CTA surveillance. Osteoarthritis 11/02/2018 Assessment & Plan (10/12/2019 11:27 AM CDT): He was on diclofenac 75 mg twice a day as well as other nonsteroidal agents [id number] for arthritis related pain for several years. I encouraged him to stop both those groups of medicines because of potential nephrotoxicity. I recommended Tylenol or acetaminophen [id number] for his arthritis related pain. If he [...] on file Legal Sex Male 6:28 PM COMMERCIAL FINANCE ANALYST Gender Identity Not on file Sexual Orientation Not on file Last Filed Vital Signs Vital Sign Reading Time Taken Comments Blood Pressure 166/76 01/27/2024 9:21 AM COMMERCIAL FINANCE ANALYST Pulse 63 01/27/2024 9:21 AM COMMERCIAL FINANCE ANALYST Temperature 36.3 C (97.3 F) 12/13/2019 2:15 PM CDT Respiratory Rate - - Oxygen Saturation 95% 07/08/2023 3:32 PM CDT Inhaled Oxygen Concentration - - Weight 112.5 kg (248 lb) 01/27/2024 9:21 AM COMMERCIAL FINANCE ANALYST Height 177.8 cm (5' 10 ) 01/27/2024 9:21 AM COMMERCIAL FINANCE ANALYST Body Mass Index 35.58 01/27/2024 9:21 AM COMMERCIAL FINANCE ANALYST Plan of Treatment Not on file Procedures [...] Date: 10/14/19740 Age: 69 Sex: Male MR#: [id number] Loc: RADIOLOGY REPORT Order #[id number] CT Scan CTA Abdomen/Pelvis w Contrast Signed [...] Electronically signed by Vinod URBAN Report ID: [id number] Reading Location: [place] [address] REPORT ELECTRONICALLY SIGNED IN OTHER VENDOR SYSTEM Resulting Agency Comment O Procedure Note Vinod Pineda MD - 10/14/2019 Patient Name: JOSEP DAVIES Dr: Prince Calvillo MD D.O.B: 1950 Exam Date: 10/14/19 0741 Age: 69 Sex: Male MR#: [id number] Loc: RADIOLOGY REPORT Order #[id number] CT Scan CTA Abdomen/Pelvis w Contrast Signed [...] Electronically signed by Vinod URBAN Report ID: [id number] Reading Location: [place] [address] REPORT ELECTRONICALLY SIGNED IN OTHER VENDOR SYSTEM Prince Calvillo MD IMG CT PROCEDURES Final Res ult from Last 3 Months or Most Recently Relevant to Health Maintenance Insurance [facility] Care Teams Forging Operator Relationship Specialty Start Date End Date Fritz Cavazos MD [address] [address] PCP - General Family Medicine 10/29/18 Jessie Garrison MD [address] [address] Button Bradder Cardiology 01/31/19
--- OUTSIDE RECORDS SUMMARY | 2024-07-13 13:22 | XMS_ITS | Clinical Summary ---
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 Aortic duplex surveillance revealed widely patent endo repair with no evidence of endoleak and a hughes aneurysm sac that is exhibited no interval enlargement. Plan: Recommend ongoing risk factor modifications and follow-up in 6 months for re-evaluation and repeat aortic duplex surveillance. Acute kidney injury 2020 Atherosclerosis of artery 2020 Coronary arteriosclerosis in hughes artery 04/24 JESSIE (acute kidney injury) 10/12/2019 [...] 01/27/2019 Assessment & Plan (05/04/2020 8:16 AM LEAD PRESS OPERATOR): Impression: Stable nondisabling claudication both lower extremities. [...] 11/12/2018 Assessment & Plan (02/07/2024 2:25 PM LEAD PRESS OPERATOR): Stable asymptomatic moderate bilateral carotid stenosis. Continue yearly duplex surveillance and anti-platelet therapy. Assessment & Plan (01/23/2023 12:30 PM LEAD PRESS OPERATOR): Impression: Patient has stable moderate right internal carotid artery stenosis seen on carotid duplex. He remains asymptomatic. Plan: Continue ongoing risk factor modifications. -patient to follow-up in 1 year for re-evaluation with repeat carotid duplex. Assessment & Plan (05/04/2020 8:17 AM LEAD PRESS OPERATOR): Impression: Stable bilateral carotid artery disease following [...] surveillance. Assessment & Plan (01/28/2019 1:41 PM LEAD PRESS OPERATOR): Impression: Patient recover well status post left carotid endarterectomy. His surgical wounds have healed well and he has had no neurological deficits in the interim. Plan: Patient follow-up in 3 months for re-evaluation and baseline carotid duplex surveillance. Tobacco abuse 11/03/2018 Primary hypertension 11/03/2018 Assessment & Plan (02/07/2024 2:26 PM LEAD PRESS OPERATOR): Hypertension chronic controlled. Continue current medical management. Assessment & Plan (01/23/2023 12:30 PM LEAD PRESS OPERATOR): Impression: Chronic stable. Plan: Continue carvedilol and losartan Assessment & Plan (05/04/2020 8:27 AM LEAD PRESS OPERATOR): Impression: Stable chronic hypertension. Plan: Medication reviewed [...] 11/02/2018 Assessment & Plan (02/07/2024 2:25 PM LEAD PRESS OPERATOR): Stent graft in good position no endoleak. Follow up 1 year with duplex surveillance. Assessment & Plan (01/23/2023 12:31 PM LEAD PRESS OPERATOR): Impression: Patient is status post endovascular repair [...] with no evidence of endoleak and a hughes aneurysm sac which has exhibited interval decrease in size currently measuring 4.1 cm in greatest transverse dimension. Plan: Patient follow-up in 6 months for re-evaluation and repeat CTA surveillance. Osteoarthritis 11/02/2018 Assessment & Plan (10/12/2019 11:27 AM CDT): He was on diclofenac 75 mg twice a day as well as other nonsteroidal agents [id number] for arthritis related pain for several years. I encouraged him to stop both those groups of medicines because of potential nephrotoxicity. I recommended Tylenol or acetaminophen [id number] for his arthritis related pain. If he [...] on file Legal Sex Male 6:28 PM LEAD PRESS OPERATOR Gender Identity Not on file Sexual Orientation Not on file Obstetrics History Last Filed Vital Signs Vital Sign Reading Time Taken Comments Blood Pressure 166/76 01/27/2024 9:21 AM LEAD PRESS OPERATOR Pulse 63 01/27/2024 9:21 AM LEAD PRESS OPERATOR Temperature 36.3 C (97.3 F) 12/13/2019 2:15 PM CDT Respiratory Rate - - Oxygen Saturation 95% 07/08/2023 3:32 PM CDT Inhaled Oxygen Concentration - - Weight 112.5 kg (248 lb) 01/27/2024 9:21 AM LEAD PRESS OPERATOR Height 177.8 cm (5' 10 ) 01/27/2024 9:21 AM LEAD PRESS OPERATOR Body Mass Index 35.58 01/27/2024 9:21 AM LEAD PRESS OPERATOR Plan of Treatment Health Maintenance Due Date [...] 10/14/19 0741 Age: 69 Sex: Male MR#: [id number] Loc: RADIOLOGY REPORT Order #[id number] CT Scan CTA Abdomen/Pelvis w Contrast Signed [...] signed by Vinod FortuneD. JA Report ID: [id number] Reading Location: [id number] REPORT ELECTRONICALLY SIGNED IN OTHER VENDOR SYSTEM Resulting Agency Comment O Procedure Note Vinod Pineda MD - 10/14/2019 Patient Name: JOSEP DAVIES Dr: Prince Calvillo MD D.O.B: 1950 Exam Date: 10/14/19 0741 Age: 69 Sex: Male MR#: [id number] Loc: RADIOLOGY REPORT Order #[id number] CT Scan CTA Abdomen/Pelvis w Contrast Signed [...] Electronically signed by Vinod URBAN Report ID: [id number] Reading Location: [id number] REPORT ELECTRONICALLY SIGNED IN OTHER VENDOR SYSTEM Prince Calvillo MD IMG CT PROCEDURES Final Res ult from Last 3 Months or Most Recently Relevant to Health Maintenance Insurance [facility] Care Teams Route Manager Relationship Specialty Start Date End Date Fritz Cavazos MD [address] [place] [address] PCP - General Family Medicine 10/29/18 Jessie Garrison MD [address] [place] [address] Cell Room Supervisor Cardiology 01/31/19
[2024-07-13 13:23] LABS: Anion Gap 12 mmol/L (4-12); Blood Urea Nitrogen 35 mg/dL (9-20); Calcium 9.4 mg/dL (8.4-10.2); Carbon Dioxide 23 mmol/L (22-30); Chloride 107 mmol/L (98-107); Estimated Glomerular Filt Rate 58; Glucose 105 mg/dL (65-110); Potassium 5.4 mmol/L (3.4-5.0); Sodium 142 mmol/L (137-145)
== END 2024-07-13 12:21 | disposition home or self-care (01) ==
PROVIDERS: PCP Family Medicine; Visit Provider Physician Assistant
DX: E87.5 Hyperkalemia (principal)
CPT/HCPCS: 36415; 80048

== ENCOUNTER 2024-07-28 10:21 | Outpatient (CLI) | payer OTHER, SELFPAY ==
--- OUTSIDE RECORDS SUMMARY | 2024-07-28 10:33 | XMS_ITS | Clinical Summary ---
Author Organization [facility] Address [address] [place] [address] Care Team Providers Care Back Panel Padder Name Role Phone Unavailable Primary Care Provider [...]
--- OUTSIDE RECORDS SUMMARY | 2024-07-28 10:33 | XMS_ITS | Encounter Summary ---
Author Organization [facility] Healthcare Address [address] [place] [address] Care Team Providers Care Cardiovascular Rn Name Role Phone Fritz Cavazos MD Primary Care Provider Jessie Garrison MD Unavailable [phone] Reason for Visit * Reason Comments follow up * Consultation (Routine) - Authorized Specialty Diagnoses / Procedures Referred By Contac t Referred To Contact Cardiology Diagnoses Hypertension, essential Fritz Cavazos MD [address] [place] [address] Phone: tel: fax: Charli Newman MD [address] [address], [place] [address] Phone: tel: fax: Referral ID Status Reason Start Date Expiration Date Visits Requested Visits Authorized [id number] Authorized Specialty Services Required 07/25/2024 11/25/2024 4 4 Encounter Details Date Type Department Care Team (Latest Contact Info) Description 07/27/2024 3:30 PM CDT Office Visit [facility] Medical Group Cardiology [address] [place] [address] [place] [phone] Charli Newman MD [address] [facility] [address], [place] [address] Hyperlipidemia, unspecified hyperlipidemia type (Primary Dx); Hypertension, essential Social History Tobacco Use Types Packs/Day Years Used Date Smoking Tobacco: Former Cigarettes 0.5 30 0 11/02/1988 - 10/26/2018 Smokeless Tobacco: Never Alcohol Use Standard Drinks/Week Comments Yes 2 (1 standard drink = 0.6 oz pur e alcohol) AUDIT-C Answer Date Recorded Frequency of Alcohol Consumption 2-4 times a thu11/02/2018 Average Number of Drinks 3 or 4 019 Frequency of Binge Drinking Never 10/15 Sex and Gender Information Value Date Recorded Sex Assigned at Not on file Legal Sex Male 6:28 PM CHARGE POSTER Gender Identity Not on file Sexual Orientation Not on file documented as of this encounter Last Filed Vital Signs Vital Sign Reading Time Taken Comments Blood Pressure 138/78 07/27/2024 3:54 PM CDT Pulse 76 07/27/2024 3:54 PM CDT Temperature - - Respiratory Rate - - Oxygen Saturation 95% 07/27/2024 3:54 PM CDT Inhaled Oxygen Concentration - - Weight 113.1 kg (249 lb 6.4 oz) 07/27/2024 3:54 PM CDT Height 177.8 cm (5' 10 ) 07/27/2024 3:54 PM CDT Body Mass Index 35.79 07/27/2024 3:54 PM CDT documented in this encounter Progress Notes * Charli Newman MD - 07/27/2024 3:30 PM CDT Images from the original note were not included. Cardiology Return Clinic Visit HPI: I saw Gustavo Goodrich in cardiology clinic today for an initial office visit. No chest pain or dyspnea. Occasonal leg swelling Feels well overall. No claudication. Worked for [employer] 35 years. 09/06/20 No new symptoms. 01/10/2021 No cardiac symptoms. 07/17/2021 Was in hospital recently with influenza. 12/25/2021 No significant cardiac symptoms are Noted. 07/02/2022 Feels well and no major symptoms. 07/08/2023 He is feeling well and no complaints. 07/27/2024 He is feeling well overall. Review of Systems 14 point ROS was discussed with the patient and is negative except as noted in the history of present illness. Current Outpatient Medications: aspirin, 1 tablet (81 mg total) carvediloL, 25 mg, oral, BID with meals (bkfst, dinner) cholecalciferol, 1,000 Units, oral, Daily ezetimibe-simvastatin, 1 tablet, oral, Nightly fenofibrate nanocrystallized, 145 mg, oral, Daily glucosamine sulfate, Take by mouth icosapent ethyL, 2 g, oral, BID lisinopriL, 40 mg, oral, Daily naproxen, Take 1 tablet (500 mg total) by mouth No Known Allergies Physical Exam: Vitals: 07/27/24 1554 BP: 138/78 BP Location: Right arm Patient Position: Sitting Pulse: 76 SpO2: 95% Weight: 113.1 kg (249 lb 6.4 oz) Height: 177.8 cm (5' 10 ) General: Pleasant male in no acute distress. HEENT: normocephalic, atraumatic, no conjunctival injection, no scleral icterus Neck: No JVD or HJR; no thyromegaly Lungs: Clear bilaterally. No rales. No rhonchi. No wheezing. Cardiac: Normal rate, regular rhythm, no murmurs, no rubs, no gallops. PMI nondisplaced. Abdomen: Soft, nontender, nondistended. No masses. No bruits. No hepatomegaly. Extremities: Warm and well perfused. No clubbing. No cyanosis. No edema Skin: No rashes noted. No lesions noted. Psych: Appropriate affect. Appropriate mood. Neuro: A&Ox4. Grossly intact. Lab/Radiology/Diagnostic Review: Sodium Date Value Ref Range Status 10/25/2021 137 135 - 146 mmol/L Final 10/18/2019 139 135 - 146 mmol/L Final 09/29/2019 137 135 - 145 mmol/L Final Potassium, pl Date Value Ref Range Status 10/25/2021 5.8 (H) 3.5 - 5.3 mmol/L Final 10/18/2019 4.5 3.5 - 5.3 mmol/L Final Potassium Date Value Ref Range Status 09/29/2019 4.6 3.3 - 5.1 mmol/L Final Chloride Date Value Ref Range Status 10/25/2021 106 98 - 110 mmol/L Final 10/18/2019 104 98 - 110 mmol/L Final 09/29/2019 102 96 - 108 mmol/L Final CO2 Date Value Ref Range Status 10/25/2021 23 20 - 32 mmol/L Final 10/18/2019 27 20 - 32 mmol/L Final Carbon Dioxide Date Value Ref Range Status 09/29/2019 26 22 - 32 mmol/L Final BUN Date Value Ref Range Status 10/25/2021 53 (H) 7 - 25 mg/dL Final 10/18/2019 21 7 - 25 mg/dL Final Creatinine Date Value Ref Range Status 10/25/2021 1.85 (H) 0.70 - 1.35 mg/dL Final 10/18/2019 1.02 0.70 - 1.25 mg/dL Final Comment: For patients >49 years of age, the reference limit for Creatinine is approximately 13% higher for people identified as -[place]. 09/29/2019 1.1 0.5 - 1.3 mg/dL Final Comment: NOTE: Estimated GFR (Cockroft-Gault) will NOT be calculated unless patient Height and Weight were entered. Also, Kidney Disease Stage (GFR) and Estimated GFR (Cockroft-Gault) will NOT be calculated if Creatinine result is <0.2. Glucose Date Value Ref Range Status 10/25/2021 106 (H) 65 - 99 mg/dL Final Comment: Fasting reference interval For someone without known diabetes, a glucose value between 100 and 125 mg/dL is consistent with prediabetes and should be confirmed with a follow-up test. Albumin Date Value Ref Range Status 10/18/2019 4.5 3.6 - 5.1 g/dL Final 09/15/2019 3.9 3.5 - 5.0 g/dL Final Works at a [employer] Has a great granddaughter and grandchildren. EKG: NSR, PAC noted Assessement and Plan -hypertension. Medications reviewed. Had issues w/ amlodipine w/ swelling. Doing well and continue as currently. -CAD. Cath 01/13/19 showed MICROBIOLOGY INSTRUCTOR RCA w/ L to R collaterals. No other high grade lesions. Continue ASAand simvastatin-zetia. No angina reported and continue monitoring. -AAA, s/p EVAR 08/2019 Followed by vascular surgery, Dr Calvillo. No evidence of any endoleak or enlargement. -carotid stenosis, bilateral. S/p L endarterectomy 2018. Following with Dr. Hyatt. Moderate bilateral stenosis on most recent ultrasound, will continue monitoring. -hyperlipidemia. Continue ezetimibe-simvastatin 10-20 daily. Continue fenofibrate. Continue Vascepa. Check lipids. -PVD. KATIE 10/14/19. Triphasic flow in the right common femoral and right popliteal. Biphasic flow inthe dorsalis pedis and posterior tibial vessels. KATIE is 0.9/1 DP/PT. Triphasic flow in the left common femoral, popliteal, dorsalis pedis and posterior tibial vessels. KATIE is greater than 1. Impression: Right infrapopliteal occlusive disease with mild to moderate distal ischemia. Normal indices andwaveforms in left lower extremity with no significant distal ischemia. Followed by vascular surgeryDr Hyatt. Continue ASA and lipid lowering therapy as currently. -preoperative evaluation. He is having a back cyst operated on. Patient is at overall moderate cardiac risk during surgery and is well optimized. No further testing is recommended prior to surgery. Team should proceed with surgery if benefits felt to outweigh risks. No medication changes are recommended in the shital-operative period. -Cardiac Risk Reduction: I have discussed with the patient the importance of healthy diet and regular exercise. We appreciate the opportunity to take care of Gustavo Goodrich. Please do not hesitate to call us if you have any questions or concerns. Sincerely yours, Charli Newman MD documented in this encounter Miscellaneous Notes * Addendum Note - Ruth Felton MA - 07/27/2024 3:30 PM CDTAddended by: RUTH FELTON on: 07/27/2024 04:40 PM Modules accepted: Orders documented in this encounter Plan of Treatment Not on file documented as of this encounter Procedures Procedure Name Priority Date/Time Associated Diagnosis Comments POCT LIPID PANEL Routine 07/27/2024 4:40 PM CDT Hyperlipidemia, unspecified hyperlipidemia type ECG 12-LEAD Routine 07/27/2024 3:57 PM CDT Hypertension, essential documented in this encounter Results * (ABNORMAL) POCT lipid panel (07/27/2024 4:40 PM CDT) HDL, POC 24(A) >=40 mg/dL Triglycerides, POC 308(A) <=149 mg/dL LDL Cholesterol POC 45 <=129 mg/dL Chol/HDL Ratio, POC 5.5 NONE Non-HDL Cholesterol, POC 106 NONE mg/dL Cholesterol Total, POC 130 30 - 199 mg/dL Capillary blood 07/27/2024 4 :40 PM CDT us Charli Newman MD POINT OF CARE TEST ORDERA BLES Final Result * ECG 12 lead (07/27/2024 3:57 PM CDT) us Charli Newman MD ECG ORDERABLES Final Res ult documented in this encounter Visit Diagnoses Diagnosis Hyperlipidemia, unspecified hyperlipidemia type- Primary Hypertension, essential Unspecified essential hypertension documented in this encounter Discontinued Medications Medication Sig Discontinue Reason Start Date End Da te diclofenac DR (VOLTAREN) 75 mg EC tablet Take 75 mg by mouth 2 (two) times a day No longer taking - Do not display on AVS 07/27/2024 documented as of this encounter Orders Outpatient Referral Count Last Ordered Date Fir st Ordered Date AMB REFERRAL TO CARDIOLOGY 1 07/27/2024 documented in this encounter Care Teams Cardiovascular Rn Relationship Specialty Start Date End Date Fritz Cavazos MD [address] [facility] [address] [facility] [address] [place] [address] PCP - General Family Medicine 10/29/18 Jessie Garrison MD [address] [address] Top Installer Cardiology 01/31/19 documented as of this encounter
--- OUTSIDE RECORDS SUMMARY | 2024-07-28 10:34 | XMS_ITS | Referral Summary ---
Author Organization [facility] Address [address] [place] [address] Care Team Providers Care Diesel Engine Pipe Fitter Name Role Phone Fritz Cavazos MD Primary Care Provider Jessie Garrison MD Unavailable [phone] Encounters Date Type Department Care Team Description 07/27/2024 3:30 PM CDT Office Visit [facility] Cardiology [address] [place] [phone] Charli Newman MD Hyperlipidemia, unspecified hyperlipidemia type (Primary Dx); Hypertension, essential from Last 3 Months Allergies No known active allergies Medications fenofibrate nanocrystallized (TRICOR,TRIGLIDE) 145 mg tablet Take 1 tablet (145 mg total) by mouth daily Active ezetimibe-simvastati n (VYTORIN) 10-20 mg per tablet Take 1 tablet by mouth nightly Active aspirin 81 mg enteric coated tablet 1 tablet (81 mg total) 01/15/20 19 Active cholecalciferol (VITAMIN D-3) 25 mcg (1,000 unit) tablet Take 1 tablet (1,000 Units total) by mouth daily Active icosapent ethyL (VASCEPA) 1 gram capsule Take 2 capsules (2 g total) by mouth 2 (two) times a day 120 capsule 3 08/01/19 21 Active glucosamine sulfate 1,000 mg tablet Take by mouth Active naproxen (NAPROSYN) 500 mg tablet Take 1 tablet (500 mg total) by mouth 06/30/19 23 Active carvediloL (COREG) 25 mg tablet Take 1 tablet (25 mg total) by mouth 2 (two) times a day with meals 60 tablet 11 07/17/19 23 Active lisinopriL (PRINIVIL,ZESTRIL) 40 mg tablet Take 1 tablet (40 mg total) by mouth daily 01/01/[address] (VOLTAREN) 75 mg EC tablet Take 75 mg by mouth 2 (two) times a day 025 Discontinu ed(No longer taking - Do not display on AVS) Active Problems Problem Noted Date Diagnosed Date Aftercare following surgery of the circulatory s alpatem, NEC 01/17/2022 Chronic alcohol use 2020 Sleep apnea treated with nocturnal BiPAP 021 Abdominal aortic aneurysm (AAA) 2020 Assessment & Plan (05/04/2020 8:15 AM CLIENT ADVISOR): Impression: Patient continues do well status post endovascular repair of his infrarenal AAA. Aortic duplex surveillance revealed widely patent endo repair with no evidence of endoleak and a [place] aneurysm sac that is exhibited no interval enlargement. Plan: Recommend ongoing risk factor modifications and follow-up in 6 months for re-evaluation and repeat aortic duplex surveillance. Acute kidney injury 2020 Atherosclerosis of artery 2020 Coronary arteriosclerosis in [place] artery 04/24 JESSIE (acute kidney injury) 10/12/2019 [...] 01/27/2019 Assessment & Plan (05/04/2020 8:16 AM CLIENT ADVISOR): Impression: Stable nondisabling claudication both lower extremities. [...] 11/12/2018 Assessment & Plan (02/07/2024 2:25 PM CLIENT ADVISOR): Stable asymptomatic moderate bilateral carotid stenosis. Continue yearly duplex surveillance and anti-platelet therapy. Assessment & Plan (01/23/2023 12:30 PM CLIENT ADVISOR): Impression: Patient has stable moderate right internal carotid artery stenosis seen on carotid duplex. He remains asymptomatic. Plan: Continue ongoing risk factor modifications. -patient to follow-up in 1 year for re-evaluation with repeat carotid duplex. Assessment & Plan (05/04/2020 8:17 AM CLIENT ADVISOR): Impression: Stable bilateral carotid artery disease following [...] surveillance. Assessment & Plan (01/28/2019 1:41 PM CLIENT ADVISOR): Impression: Patient recover well status post left carotid endarterectomy. His surgical wounds have healed well and he has had no neurological deficits in the interim. Plan: Patient follow-up in 3 months for re-evaluation and baseline carotid duplex surveillance. Tobacco abuse 11/03/2018 Primary hypertension 11/03/2018 Assessment & Plan (02/07/2024 2:26 PM CLIENT ADVISOR): Hypertension chronic controlled. Continue current medical management. Assessment & Plan (01/23/2023 12:30 PM CLIENT ADVISOR): Impression: Chronic stable. Plan: Continue carvedilol and losartan Assessment & Plan (05/04/2020 8:27 AM CLIENT ADVISOR): Impression: Stable chronic hypertension. Plan: Medication reviewed [...] 11/02/2018 Assessment & Plan (02/07/2024 2:25 PM CLIENT ADVISOR): Stent graft in good position no endoleak. Follow up 1 year with duplex surveillance. Assessment & Plan (01/23/2023 12:31 PM CLIENT ADVISOR): Impression: Patient is status post endovascular repair [...] with no evidence of endoleak and a [place] aneurysm sac which has exhibited interval decrease in size currently measuring 4.1 cm in greatest transverse dimension. Plan: Patient follow-up in 6 months for re-evaluation and repeat CTA surveillance. Osteoarthritis 11/02/2018 Assessment & Plan (10/12/2019 11:27 AM CDT): He was on diclofenac 75 mg twice a day as well as other nonsteroidal agents [id number] for arthritis related pain for several years. I encouraged him to stop both those groups of medicines because of potential nephrotoxicity. I recommended Tylenol or acetaminophen [id number] for his arthritis related pain. If he [...] Frequency of Alcohol Consumption 2-4 times a mon th 11/02/2018 Average Number of Drinks 3 or 4 019 Frequency of Binge Drinking Never 10/15 Sex and Gender Information Value Date Recorded Sex Assigned at Not on file Legal Sex Male 6:28 PM CLIENT ADVISOR Gender Identity Not on file Sexual Orientation Not on file Last Filed Vital Signs Vital Sign Reading Time Taken Comments Blood Pressure 138/78 07/27/2024 3:54 PM CDT Pulse 76 07/27/2024 3:54 PM CDT Temperature 36.3 C (97.3 F) 12/13/2019 2:15 PM CDT Respiratory Rate - - Oxygen Saturation 95% 07/27/2024 3:54 PM CDT Inhaled Oxygen Concentration - - Weight 113.1 kg (249 lb 6.4 oz) 07/27/2024 3:54 PM CDT Height 177.8 cm (5' 10 ) 07/27/2024 3:54 PM CDT Body Mass Index 35.79 07/27/2024 3:54 PM CDT Plan of Treatment Not on file Procedures Procedure Name Priority Date/Time Associated Diagnosis Comments POCT LIPID PANEL Routine 07/27/2024 4:40 PM CDT Hyperlipidemia, unspecified hyperlipidemia type ECG 12-LEAD Routine 07/27/2024 3:57 PM CDT Hypertension, essential CTA ABDOMEN PELVIS W WO CONTRAST Schedule Routine, Read Routine (OP Routine) 10/14/2019 7:41 AM CDT Aftercare following surgery of the circulatory system from Last 3 Months or Most Recently Relevant to Health Maintenance Results * (ABNORMAL) POCT lipid panel (07/27/2024 4:40 PM CDT) HDL, POC 24(A) >=40 mg/dL Triglycerides, POC 308(A) <=149 mg/dL LDL Cholesterol POC 45 <=129 mg/dL Chol/HDL Ratio, POC 5.5 NONE Non-HDL Cholesterol, POC 106 NONE mg/dL Cholesterol Total, POC 130 30 - 199 mg/dL Capillary blood 07/27/2024 4 :40 PM CDT Charli Newman MD POINT OF CARE TEST ORDERA BLES Final Result * ECG 12 lead (07/27/2024 3:57 PM CDT) us Charli Newman MD ECG ORDERABLES Final Res ult * CTA Abdomen Pelvis (10/14/2019 7:41 AM CDT) Anatomical Region Laterality Modality Body N/A Computed Tomogra phy 10/14/2019 3:38 PM CDT Narrative 10/14/2019 3:54 PM CDT Patient Name: JOSEP DAVIES Ordering Dr: Prince Calvillo MD D.O.B: 1950 Exam Date: 10/14/19 0741 Age: 69 Sex: Male MR#: [id number] Loc: RADIOLOGY REPORT Order #[id number] CT Scan CTA Abdomen/Pelvis w Contrast Signed [...] Electronically signed by Vinod URBAN Report ID: [id number] Reading Location: [place] [address] REPORT ELECTRONICALLY SIGNED IN OTHER VENDOR SYSTEM Resulting Agency Comment O Procedure Note Vinod Pineda MD - 10/14/2019 Patient Name: JOSEP DAVIES Dr: Prince Calvillo MDO.B: 1950 Exam Date: 10/14/19 0741 Age: 69 Sex: Male MR#: [id number] Loc: RADIOLOGY REPORT Order #[id number] CT Scan CTA Abdomen/Pelvis w Contrast Signed [...] Electronically signed by Vinod URBAN Report ID: [id number] Reading Location: [id number] REPORT ELECTRONICALLY SIGNED IN OTHER VENDOR SYSTEM Prince Calvillo MD IMG CT PROCEDURES Final Res ult from Last 3 Months or Most Recently Relevant to Health Maintenance Insurance [facility] Care Teams Diesel Engine Pipe Fitter Relationship Specialty Start Date End Date Fritz Cavazos MD [address] [facility] [address] [place] [id number] PCP - General Family Medicine 10/29/18 Jessie Garrison MD [address] [facility] [address] [address] Evidence Technician Cardiology 01/31/19
--- OUTSIDE RECORDS SUMMARY | 2024-07-28 10:34 | XMS_ITS | Clinical Summary ---
Author Organization [facility] at the [facility] Office [facility] Address [address] [place] [address] Care Team Providers Care External Relations Director Name Role Phone Fritz Cavazos MD Primary Care Provider Jessie Garrison MD Unavailable [phone] Allergies No known active allergies Medications fenofibrate [...] 2020 Assessment & Plan (05/04/2020 8:15 AM MELTER SUPERVISOR OPEN HEARTH FURNACE): Impression: Patient continues do well status post endovascular repair of his infrarenal AAA. Aortic duplex surveillance revealed widely patent endo repair with no evidence of endoleak and a [place] aneurysm sac that is exhibited no interval enlargement. Plan: Recommend ongoing risk factor modifications and follow-up in 6 months for re-evaluation and repeat aortic duplex surveillance. Acute kidney injury 2020 Atherosclerosis of artery 2020 Coronary arteriosclerosis in [place] artery 04/24 JESSIE (acute kidney injury) 10/12/2019 [...] 01/27/2019 Assessment & Plan (05/04/2020 8:16 AM MELTER SUPERVISOR OPEN HE[employer] FURNACE): Impression: Stable nondisabling claudication both lower extremities. [...] 11/12/2018 Assessment & Plan (02/07/2024 2:25 PM MELTER SUPERVISOR OPEN HEAR[employer] FURNACE): Stable asymptomatic moderate bilateral carotid stenosis. Continue yearly duplex surveillance and anti-platelet therapy. Assessment & Plan (01/23/2023 12:30 PM MELTER SUPERVISOR OPEN HEAR[employer] FURNACE): Impression: Patient has stable moderate right internal carotid artery stenosis seen on carotid duplex. He remains asymptomatic. Plan: Continue ongoing risk factor modifications. -patient to follow-up in 1 year for re-evaluation with repeat carotid duplex. Assessment & Plan (05/04/2020 8:17 AM MELTER SUPERVISOR OPEN HEAR[employer] FURNACE): Impression: Stable bilateral carotid artery disease following [...] surveillance. Assessment & Plan (01/28/2019 1:41 PM MELTER SUPERVISOR OPEN HEAR[employer] FURNACE): Impression: Patient recover well status post left carotid endarterectomy. His surgical wounds have healed well and he has had no neurological deficits in the interim. Plan: Patient follow-up in 3 months for re-evaluation and baseline carotid duplex surveillance. Tobacco abuse 11/03/2018 Primary hypertension 11/03/2018 Assessment & Plan (02/07/2024 2:26 PM MELTER SUPERVISOR OPEN HEAR[employer] FURNACE): Hypertension chronic controlled. Continue current medical management. Assessment & Plan (01/23/2023 12:30 PM MELTER SUPERVISOR OPEN HE[employer] FURNACE): Impression: Chronic stable. Plan: Continue carvedilol and losartan Assessment & Plan (05/04/2020 8:27 AM MELTER SUPERVISOR OPEN HEAR[employer] FURNACE): Impression: Stable chronic hypertension. Plan: Medication reviewed [...] 11/02/2018 Assessment & Plan (02/07/2024 2:25 PM MELTER SUPERVISOR OPEN HEAR[employer] FURNACE): Stent graft in good position no endoleak. Follow up 1 year with duplex surveillance. Assessment & Plan (01/23/2023 12:31 PM MELTER SUPERVISOR OPEN HEARTH FURNACE): Impression: Patient is status post endovascular repair [...] with no evidence of endoleak and a [place] aneurysm sac which has exhibited interval decrease in size currently measuring 4.1 cm in greatest transverse dimension. Plan: Patient follow-up in 6 months for re-evaluation and repeat CTA surveillance. Osteoarthritis 11/02/2018 Assessment & Plan (10/12/2019 11:27 AM CDT): He was on diclofenac 75 mg twice a day as well as other nonsteroidal agents [id number] for arthritis related pain for several years. I encouraged him to stop both those groups of medicines because of potential nephrotoxicity. I recommended Tylenol or acetaminophen [id number] for his arthritis related pain. If he has pain that is not controlled with Tylenol he can discuss addition of tramadol with his primary care physician. Hypercholesterolemia 11/02/2018 Encounters Date Type Department Care Team Description 07/27/2024 3:30 PM CDT Office Visit [facility] Cardiology [facility] [address] [place] [phone] Charli Newman MD Hyperlipidemia, unspecified hyperlipidemia type (Primary Dx); Hypertension, essential from Last 3 Months Immunizations Immunization Administration Dates Next Due Influenza, [...] on file Legal Sex Male 6:28 PM MELTER SUPERVISOR OPEN [employer] FURNACE Gender Identity Not on file Sexual Orientation [...] 07/27/2024 3:54 PM CDT Plan of Treatment Health Maintenance Due Date Last Done Comments Colon Cancer Screening-Colonoscopy 1950 Depression Screening 1950 Fall Risk Assessment 1950 Hepatitis C Screening 1950 DTaP/Tdap/Td Vaccine (1 - Tdap) 1963 Hepatitis B Screening 1970 Pneumococcal vaccine 65+ (1 of 1 - PCV) 2002 Zoster Vaccine (1 of 2) 2002 Well Visit 65+ 2017 Influenza Vaccine (Season Ended) 2024 11/22/2019, 01/14/2019, 01/12/2013 Abdominal Aortic Aneurysm (A AA) [...] Prince Calvillo MD D.O.B: 1950 Exam Date: 10/14/1939 Age: 69 Sex: Male MR#: [id number] Loc: RADIOLOGY REPORT Order #[id number] CT Scan CTA Abdomen/Pelvis w Contrast Signed [...] Electronically signed by Vinod URBAN Report ID: [id number] Reading Location: [id number] REPORT ELECTRONICALLY SIGNED IN OTHER VENDOR SYSTEM Resulting Agency Comment O Procedure Note Vinod Pineda MD - 10/14/2019 Patient Name: JOSEP DAVIES Dr: Prince Calvillo MD D.O.B: 1950 Exam Date: 10/14/19 0741 Age: 69 Sex: Male MR#: [id number] Loc: RADIOLOGY REPORT Order #[id number] CT Scan CTA Abdomen/Pelvis w Contrast Signed [...] Electronically signed by Vinod URBAN Report ID: [id number] Reading Location: [id number] REPORT ELECTRONICALLY SIGNED IN OTHER VENDOR SYSTEM Prince Calvillo MD IMG CT PROCEDURES Final Res ult from Last 3 Months or Most Recently Relevant to Health Maintenance Insurance [facility] Care Teams External Relations Director Relationship Specialty Start Date End Date Fritz Cavazos MD [address] [place] [address] PCP - General Family Medicine 10/29/18 Jessie Garrison MD [address] [facility] [address] Leasing Representative Cardiology 01/31/19
--- OUTSIDE RECORDS SUMMARY | 2024-07-28 10:34 | XMS_ITS | Continuity of Care Document ---
Author Organization [facility] Address [address] [place] [address] [place] [address] Phone Care Team Providers Care Pipelines Supervisor Name Role Phone Jose Carlos Ernandez DO Unavailable Unavailable Advance Directives Directive Yes / No Effective Date File Name No Information Encounters Encounter Description Practice Location Reason(s) For Visit Diagnoses Date Provider Providers Copied on Encounter [facility], [address], [place], [place], [id number], [place] tel:[phone] [facility] No Information Awais Almendarez. [address] [facility], [place], [address], [place]. tel: [phone] Family History Family Member Type Diagnosis Age At Onset No Information Payers Payer name Insurance type Covered alliance party ID Authoriza tijennifer(s) Benjamin Bellalexia Salazar [id number] Social History Type Description Quantity Date Captured [...]
[2024-07-28 11:28] LABS: Anion Gap 10 mmol/L (4-12); Blood Urea Nitrogen 43 mg/dL (9-20); Calcium 9.4 mg/dL (8.4-10.2); Carbon Dioxide 21 mmol/L (22-30); Chloride 109 mmol/L (98-107); Estimated Glomerular Filt Rate 55; Glucose 160 mg/dL (65-110); Potassium 4.9 mmol/L (3.4-5.0); Sodium 140 mmol/L (137-145)
[2024-07-28 11:37] LABS: INR 1.1; Prothrombin Time 14.2 Seconds (11.1-14.7)
[2024-07-28 11:38] LABS: Partial Thromboplastin Time 23.6 Seconds (22.3-36.8)
== END 2024-07-28 10:22 | disposition home or self-care (01) ==
PROVIDERS: Anesthesiology; Physician Assistant; PCP Family Medicine; Visit Provider Surgery
DX: Z01.812 Encounter for preprocedural laboratory examination (principal); N28.9 Disorder of kidney and ureter, unspecified; I10 Essential (primary) hypertension; E87.5 Hyperkalemia
CPT/HCPCS: 36415; 80048; 85610; 85730

== ENCOUNTER 2024-08-05 01:13 | Day surgery (SDC) | payer OTHER, SELFPAY ==
[2024-07-22 09:46] VITALS: BMI 35.4
--- NOTE | 2024-07-22 11:34 | PC.NURSE ---
Report to the Outpatient Waiting Room, entrance under the green pavilion located off [facility], at time ___10:00AM____ on date ___08/05/24____. Planned Procedure Time: ___12:00PM .? Time changes happen often and if your time is changed the preop area will call you the afternoon before. - You and your visitor will be asked to self-screen and do not enter if you have any COVID symptoms. Please call surgeon if you need to reschedule. - A mask is optional within the hospital at this time. Patients may have clear liquids (water, carbonated beverages, clear teas, apple juice) until 3 hours prior to surgery (9:00AM) with a maximum of 20 ounces. - No food from midnight until time of surgery and no smoking, or chewing tobacco (or any form of nicotine). No chewing gum, candy or mints. Take only the following medications with a SIP of water on the morning of surgery: __CARVEDILOL DO NOT STOP ANY OF YOUR OTHER PRESCRIPTION MEDICATIONS PRIOR TO SURGERY EXCEPT THE FOLLOWING Hold all vitamins and supplements for 3 days per anesthesiologist.-LAST DOSE 08/01/24 Please no make-up, nail citizen of [place], hairspray, perfume, deodorant, or body powder the day of surgery.? No jewelry (including any body piercings) or valuables the day of surgery, leave them at home.? Please take a shower or bath the night before, or the morning of, surgery with an antibacterial soap.? Wear comfortable, loose fitting clothing.? - Jewelry must be removed prior to entering the operating room.? Rings and piercings that are not removed may be cut off. - The hospital will not accept responsibility for valuables.? - Please leave all valuables, including medications, at home the day of surgery. If you are going home after surgery, a licensed racecar driver must drive you home.? - NO public transportation without another adult if you receive anesthesia. - We recommend that an adult stay with you for 24 hours following discharge. - We also recommend that you do not drive, make important decision, drink alcoholic beverages, or take any drugs that were not prescribed by your health care provider for at least 24 hours after your discharge time. Follow any additional instructions given to you from your surgeon. Telephone instructions given to ____PATIENT and asked if any additional questions and then verbalized understanding. Patient advised to call surgeon office or pre surgery nurse liaison [phone] if any additional questions.
--- NOTE | 2024-08-03 13:14 | P.SS_ITS ---
Same Day Admit/Disch: HPI History of Present Illness Chief complaint: sub-q mass of back (1.5cm) Narrative: Gustavo Goodrich is a 74 year old male who a couple of months ago had a painful swollen nodule on his back. He was given a prescription for Keflex and the infected cyst drained spontaneously. It continued to improve. He was seen in the office and after discussion, he is taken to surgery now for excision of the cyst remnants to avoid recurrence of the cyst. On the day of surgery, patient has a new cyst that was not there when I saw him in the office. It is approximately 1.5 cm and is above and medial to the scar from the drained cyst noted above. He would like this removed as well. [facility] Past Medical History Medical History Osteoarthritis Obstructive sleep apnea With CPAP use Obesity (BMI 30-39.9) Personal history of nicotine dependence Peripheral vascular disease COVID-19 (~07/2019) Carotid stenosis AAA (abdominal aortic aneurysm) Mixed hyperlipidemia Essential (primary) hypertension Surgical History Surgical History Status post open reduction with internal fixation of fracture Left wrist History of colonoscopy with polypectomy With most recent colonoscopy October 2020 demonstrating no polyps S/P insertion of iliac artery stent (~2019) bilateral History of endovascular stent graft for abdominal aortic aneurysm (AAA) (~2019) History of left-sided carotid endarterectomy (~2018) Hx of appendectomy (2015) Family History Family History Mother , At age greater than 80 Diabetes mellitus Sibling Patient's sister is in good health, Onset Age: 56 Father Hyperlipidemia Still alive at age 93 Social History Social History Social History: He lives in [facility] with his of 34 years. He has 3 children who are healthy. He worked at [employer] for approximately 40 years. 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 He drinks a couple beers a couple times a week. He quit smoking in 2019. Code status: Full code Surrogate decision maker: Primary care physician: Dr. Fritz Cavazos Smoking packs per day: 1 Smoking cigarettes per day: 20.0 Years smoked: 40 Smoking pack-years: 40.00 Smoking status: Former smoker Tobacco type: cigarettes Second hand tobacco smoke exposure: No Smoking end date: 09/14/19 Alcohol intake: current Drinks per week: 8 Alcohol use details: Beer Substance use: never Substance use type: does not use Do You Feel Safe in your Home?: Yes Lack of Transportation: No Lack of Food: Never True Current Housing: I Have Housing Concerned About Future Housing: No Difficulty Paying Gas/Electric Bills: No Difficulty Paying for Meds: No Currently Unemployed: No Education: Trade/Vocational Certificate Difficulty w/ Childcare or Family Care: No Living arrangements: with family Additional living arrangements comments: Occupation/Education: retired Gender identity (if verbalized by the patient): Male Sexual Orientation (if Verbalized by the Patient): Straight or Heterosexual Spiritual care concerns: No Same Day Admit/Disch: Med Pre-admit Medications Home Medications ?Medication ?Instructions ?Recorded ?Confirmed ?Type aspirin 81 mg tablet,delayed 81 mg PO DAILY 01/25/19 08/05/24 History release glucosamine sulf dipot 1 cap PO BID #60 caps 08/08/21 08/05/24 Rx chlr,msm,chond 550 mg-C 30 mg-eliud 1 mg capsule (Glucosamine Chondroitin) multivitamin 1 tablet PO DAILY #90 tabs 08/08/21 08/05/24 Rx fenofibrate nanocrystallized 145 See Rx Instructions .Route 06/28/23 08/05/24 Rx mg tablet .COMPLEX #90 tabs lisinopril 40 mg tablet 40 mg PO DAILY #90 tabs 03/28/24 08/05/24 Rx icosapent ethyl 1 gram capsule See Rx Instructions .Route 06/01/24 08/05/24 Rx .COMPLEX #360 caps carvedilol 25 mg tablet See Rx Instructions .Route 06/22/24 08/05/24 Rx .COMPLEX #180 tabs furosemide 20 mg tablet 20 mg PO QAM #7 tabs 07/13/24 08/05/24 Rx naproxen 500 mg tablet See Rx Instructions .Route 07/15/24 08/05/24 Rx .COMPLEX #60 tabs ezetimibe 10 mg-simvastatin 20 mg 1 tablet PO HS #90 tabs 07/29/24 08/05/24 Rx tablet (Vytorin) tramadol 50 mg tablet 50 mg PO Q6H PRN pain #10 tabs 08/05/24 Rx Review of Systems Review of Systems All systems reviewed & are unremarkable except as noted in HPI and below (HPI) Exam Const: General: comfortable, no acute distress, alert and awake HENMT: Head: normocephalic and atraumatic Mouth: Yes Normal oral and palatal mucosa present Eyes: Conjunctivae: conjunctivae normal Pupils: Equal, round and reactive pupils present EOM: EOMs intact bilaterally Neck: Neck: normal visual inspection, no lymphadenopathy and nontender Resp: Effort & Inspection: normal respiratory effort Auscultation: clear to auscultation bilaterally Cardio: Rate: regular rate Rhythm: regular rhythm Heart sounds: no gallops, no murmurs and no rubs GI: Inspection: non-distended GI Palp: Yes Soft to palpation, No Tenderness to palpation present (GI), No Hepatomegaly present and No Splenomegaly present Back/Spine/Pelvis: Back: mass (Left upper back nodule consistent with cyst remnant), No erythema, No warmth, No back tenderness and other (Day of surgery: new 1.5 cm cyst above and medial, no infection) Skin: Lesions: no lesions Rashes: no rashes Neuro: General: no focal motor deficits and CN's II-XI intact bilaterally Cranial nerves: Yes Equal, round and reactive pupils present, Yes Bilaterally intact EOM present, Yes facial symmetry and Yes Midline tongue present Speech: normal speech Motor exam (neuro): 5/5 motor strength present throughout and Motor abnormalities not present Extrem: General: no clubbing, cyanosis or edema and edema Psych: Affect: normal affect Thought process: Normal thought process present Insight: Good insight present (Psych) DS: Summary Time Spent with Patient Time attestation: Total time spent providing and/or coordinating discharge services: DS: Admitting Diagnosis Discharge Date 08/05/2024 Admitting Diagnosis * Inclusion cyst left upper back, recently infected and drained spontaneously. Now has residual cyst left behind. After discussion, patient is taken to surgery now for excision of the cyst remnants under anesthesia. The procedure, risks, benefits have been discussed. Usual length of recovery has been discussed. All questions were answered, he agrees to go ahead. * Day of surgery-new, 1.5 cm, non infected skin cyst a few cm above and medial to the previously drained cyst. Will excise this at the same procedure. * Hypertension * Cerebrovascular disease * Coronary artery disease * Chronic kidney disease DS: Discharge Diagnosis Discharge Diagnosis (1) Subcutaneous mass of back: Code(s): R22.2 - Localized swelling, mass and lump, trunk Status: Acute Assessment and Plan: Two cysts as noted on exam. Both excised under local anesthetic and general endotracheal anesthesia as an outpatient per Dr. Terry 08/05/2024 Discharge Plan Discharge Patient Disposition: Home Discharge Instructions: * Okay to bathe or shower tomorrow morning, wash over incisions with soap and water to keep clean. * Avoid excessive flexing or reaching with left arm that would place tension on the 2 incisions. Avoid this for 1 week. * Resume your normal prescriptions. * Try to take Tylenol for postoperative pain. Prescription for stronger pain medication has been sent to your pharmacy in case you need a couple doses of it. * May drive a car on Thursday. * Stairs are okay. * No limit on lifting as this does not place any tension on the suture lines. * Call or go to the emergency room if notice persistent drainage or bleeding from either of the wounds, severe pain from either wound, severe bruising or swelling of either wound, temp over 100.5, or other significant change in condition. * Follow-up with Dr. Terry in 2 weeks unless you already have an appointment, in which case, keep that appointment. Patient Language: Estonian Stand Alone Forms: General Discharge Instructions Follow-up/Referrals: Pro Terry MD [Physician] - 2 Weeks Discharge Medications: New tramadol 50 mg tablet 50 mg PO Q6H PRN (Reason: pain) Qty: 10 0RF Continued icosapent ethyl 1 gram capsule See Rx Instructions .ROUTE .COMPLEX Qty: 360 2RF Dose Instruction: TAKE 2 CAPSULES BY MOUTH TWICE DAILY Rx Instructions: TAKE 2 CAPSULES BY MOUTH TWICE DAILY aspirin 81 mg tablet,delayed release (DR/EC) 81 mg PO DAILY multivitamin Tablet 1 tablet PO DAILY Qty: 90 0RF Glucosamine Chondroitin 550-30-1 mg capsule 1 cap PO BID Qty: 60 0RF fenofibrate nanocrystallized 145 mg tablet See Rx Instructions .ROUTE .COMPLEX Qty: 90 3RF Dose Instruction: TAKE 1 TABLET BY MOUTH EVERY DAY Rx Instructions: TAKE 1 TABLET BY MOUTH EVERY DAY lisinopril 40 mg tablet 40 mg PO DAILY Qty: 90 1RF Patient Comments: QAM carvedilol 25 mg tablet See Rx Instructions .ROUTE .COMPLEX Qty: 180 3RF Dose Instruction: TAKE 1 TABLET BY MOUTH TWICE A DAY WITH FOOD Rx Instructions: TAKE 1 TABLET BY MOUTH TWICE A DAY WITH FOOD furosemide 20 mg tablet 20 mg PO QAM Qty: 7 0RF Patient Comments: TAKING SHORTTERM FOR INCREASED POTASSIUM LEVEL PER PATIENT naproxen 500 mg tablet See Rx Instructions .ROUTE .COMPLEX Qty: 60 5RF Dose Instruction: TAKE 1 TABLET BY MOUTH TWICE A DAY Rx Instructions: TAKE 1 TABLET BY MOUTH TWICE A DAY ezetimibe-simvastatin [Vytorin 10-20] 10-20 mg tablet 1 tablet PO HS Qty: 90 2RF
[2024-08-05] VITALS (8 sets, daily range): BP systolic 108–156; BP diastolic 47–74; PULSE 62–73; RESP 12–20; TEMP 36.1–36.6; O2SAT 94–100
--- OUTSIDE RECORDS SUMMARY | 2024-08-05 01:16 | XMS_ITS | Clinical Summary ---
Author Organization [facility] at the [facility] Address [address] [place] [address] Care Team Providers Care Grading Supervisor Name Role Phone Fritz Cavazos MD Primary Care Provider Jessie Garrison MD Unavailable [phone] Allergies No known active allergies Medications fenofibrate [...] 2020 Assessment & Plan (05/04/2020 8:15 AM SCALE MODEL MAKER): Impression: Patient continues do well status post endovascular repair of his infrarenal AAA. Aortic duplex surveillance revealed widely patent endo repair with no evidence of endoleak and a [place] aneurysm sac that is exhibited no interval enlargement. Plan: Recommend ongoing risk factor modifications and follow-up in 6 months for re-evaluation and repeat aortic duplex surveillance. Acute kidney injury 2020 Atherosclerosis of artery 2020 Coronary arteriosclerosis in [place] artery 04/24 JESSIE (acute kidney injury) [...] 01/27/2019 Assessment & Plan (05/04/2020 8:16 AM SCALE MODEL MAKER): Impression: Stable nondisabling claudication both lower extremities. [...] 11/12/2018 Assessment & Plan (02/07/2024 2:25 PM SCALE MODEL MAKER): Stable asymptomatic moderate bilateral carotid stenosis. Continue yearly duplex surveillance and anti-platelet therapy. Assessment & Plan (01/23/2023 12:30 PM SCALE MODEL MAKER): Impression: Patient has stable moderate right internal carotid artery stenosis seen on carotid duplex. He remains asymptomatic. Plan: Continue ongoing risk factor modifications. -patient to follow-up in 1 year for re-evaluation with repeat carotid duplex. Assessment & Plan (05/04/2020 8:17 AM SCALE MODEL MAKER): Impression: Stable bilateral carotid artery disease following [...] surveillance. Assessment & Plan (01/28/2019 1:41 PM SCALE MODEL MAKER): Impression: Patient recover well status post left carotid endarterectomy. His surgical wounds have healed well and he has had no neurological deficits in the interim. Plan: Patient follow-up in 3 months for re-evaluation and baseline carotid duplex surveillance. Tobacco abuse 11/03/2018 Primary hypertension 11/03/2018 Assessment & Plan (02/07/2024 2:26 PM SCALE MODEL MAKER): Hypertension chronic controlled. Continue current medical management. Assessment & Plan (01/23/2023 12:30 PM SCALE MODEL MAKER): Impression: Chronic stable. Plan: Continue carvedilol and losartan Assessment & Plan (05/04/2020 8:27 AM SCALE MODEL MAKER): Impression: Stable chronic hypertension. Plan: Medication reviewed [...] 11/02/2018 Assessment & Plan (02/07/2024 2:25 PM SCALE MODEL MAKER): Stent graft in good position no endoleak. Follow up 1 year with duplex surveillance. Assessment & Plan (01/23/2023 12:31 PM SCALE MODEL MAKER): Impression: Patient is status post endovascular repair [...] with no evidence of endoleak and a [place] aneurysm sac which has exhibited interval decrease in size currently measuring 4.1 cm in greatest transverse dimension. Plan: Patient follow-up in 6 months for re-evaluation and repeat CTA surveillance. Osteoarthritis 11/02/2018 Assessment & Plan (10/12/2019 11:27 AM CDT): He was on diclofenac 75 mg twice a day as well as other nonsteroidal agents rags-ioi-xrobtow for arthritis related pain for several years. I encouraged him to stop both those groups of medicines because of potential nephrotoxicity. I recommended Tylenol or acetaminophen [id number] for his arthritis related pain. If he has pain that is not controlled with Tylenol he can discuss addition of tramadol with his primary care physician. Hypercholesterolemia 11/02/2018 Encounters Date Type Department Care Team Description 07/27/2024 3:30 PM CDT Office Visit [facility] Medical [facility] Cardiology [facility] [address] [place] [phone] Charli Newman MD Hyperlipidemia, unspecified hyperlipidemia [...] on file Legal Sex Male 6:28 PM SCALE MODEL MAKER Gender Identity Not on file Sexual Orientation [...] Date: 10/14/1939 Age: 69 Sex: Male MR#: [id number] Loc: RADIOLOGY REPORT Order #[id number] CT Scan CTA Abdomen/Pelvis w Contrast Signed [...] Electronically signed by Vinod URBAN Report ID: [id number] Reading Location: [id number] REPORT ELECTRONICALLY SIGNED IN OTHER VENDOR SYSTEM Resulting Agency Comment O Procedure Note Vinod Pineda MD - 10/14/2019 Patient Name: JOSEP DAVIES Dr: Prince Calvillo MD D.O.B: 1950 Exam Date: 10/14/19 0741 Age: 69 Sex: Male MR#: [id number] Loc: RADIOLOGY REPORT Order #[id number] CT Scan CTA Abdomen/Pelvis w Contrast Signed [...] Electronically signed by Vinod URBAN Report ID: [id number] Reading Location: [id number] REPORT ELECTRONICALLY SIGNED IN OTHER VENDOR SYSTEM Prince Calvillo MD IMG CT PROCEDURES Final Res ult from Last 3 Months or Most Recently Relevant to Health Maintenance Insurance [facility] Care Teams Grading Supervisor Relationship Specialty Start Date End Date Fritz Cavazos MD [address] [place] [address] PCP - General Family Medicine 10/29/18 Jessie Garrison MD [address] [facility] [place] [address] Health Unit Coordinator Cardiology 01/31/19
--- OUTSIDE RECORDS SUMMARY | 2024-08-05 01:16 | XMS_ITS | Referral Summary ---
Author Organization [facility] at the [facility] Office Center Address [address] [place] [address] Care Team Providers Care Director Audience Marketing Name Role Phone Fritz Cavazos MD Primary Care Provider Jessie Garrison MD Unavailable [phone] Encounters Date Type Department Care Team Description 07/27/2024 3:30 PM CDT Office Visit [facility] Medical Group Cardiology [address] [place] [phone] Charli Newman MD Hyperlipidemia, unspecified hyperlipidemia [...] 2020 Assessment & Plan (05/04/2020 8:15 AM SIZE CUTTER): Impression: Patient continues do well status post endovascular repair of his infrarenal AAA. Aortic duplex surveillance revealed widely patent endo repair with no evidence of endoleak and a [place] aneurysm sac that is exhibited no interval enlargement. Plan: Recommend ongoing risk factor modifications and follow-up in 6 months for re-evaluation and repeat aortic duplex surveillance. Acute kidney injury 2020 Atherosclerosis of artery 2020 Coronary arteriosclerosis in [place] artery 04/24 JESSIE (acute kidney injury) 10/12/2019 [...] 01/27/2019 Assessment & Plan (05/04/2020 8:16 AM SIZE CUTTER): Impression: Stable nondisabling claudication both lower extremities. [...] 11/12/2018 Assessment & Plan (02/07/2024 2:25 PM SIZE CUTTER): Stable asymptomatic moderate bilateral carotid stenosis. Continue yearly duplex surveillance and anti-platelet therapy. Assessment & Plan (01/23/2023 12:30 PM SIZE CUTTER): Impression: Patient has stable moderate right internal carotid artery stenosis seen on carotid duplex. He remains asymptomatic. Plan: Continue ongoing risk factor modifications. -patient to follow-up in 1 year for re-evaluation with repeat carotid duplex. Assessment & Plan (05/04/2020 8:17 AM SIZE CUTTER): Impression: Stable bilateral carotid artery disease following [...] surveillance. Assessment & Plan (01/28/2019 1:41 PM SIZE CUTTER): Impression: Patient recover well status post left carotid endarterectomy. His surgical wounds have healed well and he has had no neurological deficits in the interim. Plan: Patient follow-up in 3 months for re-evaluation and baseline carotid duplex surveillance. Tobacco abuse 11/03/2018 Primary hypertension 11/03/2018 Assessment & Plan (02/07/2024 2:26 PM SIZE CUTTER): Hypertension chronic controlled. Continue current medical management. Assessment & Plan (01/23/2023 12:30 PM SIZE CUTTER): Impression: Chronic stable. Plan: Continue carvedilol and losartan Assessment & Plan (05/04/2020 8:27 AM SIZE CUTTER): Impression: Stable chronic hypertension. Plan: Medication reviewed [...] 11/02/2018 Assessment & Plan (02/07/2024 2:25 PM SIZE CUTTER): Stent graft in good position no endoleak. Follow up 1 year with duplex surveillance. Assessment & Plan (01/23/2023 12:31 PM SIZE CUTTER): Impression: Patient is status post endovascular repair [...] with no evidence of endoleak and a [place] aneurysm sac which has exhibited interval decrease in size currently measuring 4.1 cm in greatest transverse dimension. Plan: Patient follow-up in 6 months for re-evaluation and repeat CTA surveillance. Osteoarthritis 11/02/2018 Assessment & Plan (10/12/2019 11:27 AM CDT): He was on diclofenac 75 mg twice a day as well as other nonsteroidal agents qqif-gig-flurpye for arthritis related pain for several years. I encouraged him to stop both those groups of medicines because of potential nephrotoxicity. I recommended Tylenol or acetaminophen woas-fqe-ottfard for his arthritis related pain. If he [...] on file Legal Sex Male 6:28 PM SIZE CUTTER Gender Identity Not on file Sexual Orientation [...] 10/14/19 0741 Age: 69 Sex: Male MR#: [id number] Loc: RADIOLOGY REPORT Order #[id number] CT Scan CTA Abdomen/Pelvis w Contrast Signed [...] Electronically signed by Vinod URBAN Report ID: [id number] Reading Location: [place] [id number] REPORT ELECTRONICALLY SIGNED IN OTHER VENDOR SYSTEM Resulting Agency Comment O Procedure Note Vinod Pineda MD - 10/14/2019 Patient Name: JOSEP DAVIES Dr: Prince Calvillo MDO.B: 1950 Exam Date: 10/14/19 0741 Age: 69 Sex: Male MR#: [id number] Loc: RADIOLOGY REPORT Order #[id number] CT Scan CTA Abdomen/Pelvis w Contrast Signed [...] Electronically signed by Vinod URBAN Report ID: [id number] Reading Location: [id number] REPORT ELECTRONICALLY SIGNED IN OTHER VENDOR SYSTEM Prince Calvillo MD IMG CT PROCEDURES Final Res ult from Last 3 Months or Most Recently Relevant to Health Maintenance Insurance [address] [address] [place] [id number] [employer] Care Teams Director Audience Marketing Relationship Specialty Start Date End Date Fritz Cavazos MD [address] [facility] [address] [place] [id number] PCP - General Family Medicine 10/29/18 Jessie Garrison MD [address] [facility] [address] [address] Research Quality Assurance Specialist Cardiology 01/31/19
--- OUTSIDE RECORDS SUMMARY | 2024-08-05 01:16 | XMS_ITS | Continuity of Care Document ---
Author Organization Located within [facility] Address [address] [place] [address] [place] [address] Phone Care Team Providers Care Directory Assistance Operator Name Role Phone Jose Carlos Ernandez DO Unavailable Unavailable Advance Directives Directive Yes / No Effective Date File Name No Information Encounters Encounter Description Practice Location Reason(s) For Visit Diagnoses Date Provider Providers Copied on Encounter [facility], [address], [place], [place], [id number], [place] tel:[phone] [facility] No Information Awais Almendarez. [address] [facility], [place], [address], [place]. tel: [phone] Family History Family Member Type Diagnosis Age At Onset No Information Payers Payer name Insurance type Covered green party ID Authoriza tijennifer(s) Benjamin Bellalexia Salazar [id number] Social History Type Description Quantity Date Captured [...]
--- NOTE | 2024-08-05 09:03 | WPDHPUPDATE1 ---
History and Physical Update Update Date/Time: 08/05/24 09:03 History and Physical has been reviewed, including an updated exam of the patient. There are NO changes in the patient's condition. Risks, benefits, and alternatives have been discussed and questions answered. Patient agrees to proceed with procedure.
--- NOTE | 2024-08-05 11:44 | P.PNAN_ITS ---
Anes - Initial Pre Proc Eval Procedure: Operation Date: 08/05/24 11:00 Proposed Procedures p Excision of Back Mass - Pro Terry MD Date/Time: 08/05/24 11:44 Surgeon: Pro Terry MD Pre Op Diagnosis: sub-q mass of back (1.5cm) Patient Data Age: 74 Gender: M Height: 1.78 m Weight: 111.1 kg Last Vital Signs Temp 36.6 C 08/05/24 10:00 Pulse 63 08/05/24 10:00 Resp 18 08/05/24 10:00 BP 147/55 H 08/05/24 10:00 Pulse Ox 99 08/05/24 10:00 O2 Del Method Room Air 08/05/24 10:00 Allergies Allergy/AdvReac Type Severity Reaction Status Date / Time No Known Allergies Allergy Verified 08/05/24 10:29 Home Medications ?Medication ?Instructions ?Recorded ?Confirmed ?Type aspirin 81 mg tablet,delayed 81 mg PO DAILY 01/25/19 08/05/24 History release glucosamine sulf dipot 1 cap PO BID #60 caps 08/08/21 08/05/24 Rx chlr,msm,chond 550 mg-C 30 mg-eliud 1 mg capsule (Glucosamine Chondroitin) multivitamin 1 tablet PO DAILY #90 tabs 08/08/21 08/05/24 Rx fenofibrate nanocrystallized 145 See Rx Instructions .Route 06/28/23 08/05/24 Rx mg tablet .COMPLEX #90 tabs lisinopril 40 mg tablet 40 mg PO DAILY #90 tabs 03/28/24 08/05/24 Rx icosapent ethyl 1 gram capsule See Rx Instructions .Route 06/01/24 08/05/24 Rx .COMPLEX #360 caps carvedilol 25 mg tablet See Rx Instructions .Route 06/22/24 08/05/24 Rx .COMPLEX #180 tabs furosemide 20 mg tablet 20 mg PO QAM #7 tabs 07/13/24 08/05/24 Rx naproxen 500 mg tablet See Rx Instructions .Route 07/15/24 08/05/24 Rx .COMPLEX #60 tabs ezetimibe 10 mg-simvastatin 20 mg 1 tablet PO HS #90 tabs 07/29/24 08/05/24 Rx tablet (Vytorin) Patient hx anesthesia problems: none Family hx anesthesia problems: none Results Review: All pre-operative results and documents have been reviewed as part of the pre- operative evaluation. [facility] Past Medical History Medical History Osteoarthritis Obstructive sleep apnea With CPAP use Obesity (BMI 30-39.9) Personal history of nicotine dependence Peripheral vascular disease COVID-19 (~07/2019) Carotid stenosis AAA (abdominal aortic aneurysm) Mixed hyperlipidemia Essential (primary) hypertension Surgical History Surgical History Status post open reduction with internal fixation of fracture Left wrist History of colonoscopy with polypectomy With most recent colonoscopy October 2020 demonstrating no polyps S/P insertion of iliac artery stent (~2019) bilateral History of endovascular stent graft for abdominal aortic aneurysm (AAA) (~2019) History of left-sided carotid endarterectomy (~2018) Hx of appendectomy (2015) Family History Family History Mother , At age greater than 80 Diabetes mellitus Sibling Patient's sister is in good health, Onset Age: 56 Father Hyperlipidemia Still alive at age 93 Social History Social History Social History: He lives in [facility] with his of 34 years. He has 3 children who are healthy. He worked at [employer] for approximately 40 years. 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 He drinks a couple beers a couple times a week. He quit smoking in 2018. Code status: Full code Surrogate decision maker: Primary care physician: Dr. Fritz Cavazos Smoking packs per day: 1 Smoking cigarettes per day: 20.0 Years smoked: 40 Smoking pack-years: 40.00 Smoking status: Former smoker Tobacco type: cigarettes Second hand tobacco smoke exposure: No Smoking end date: 09/14/19 Alcohol intake: current Drinks per week: 8 Alcohol use details: Beer Substance use: never Substance use type: does not use Do You Feel Safe in your Home?: Yes Lack of Transportation: No Lack of Food: Never True Current Housing: I Have Housing Concerned About Future Housing: No Difficulty Paying Gas/Electric Bills: No Difficulty Paying for Meds: No Currently Unemployed: No Education: Trade/Vocational Certificate Difficulty w/ Childcare or Family Care: No Living arrangements: with family Additional living arrangements comments: Occupation/Education: retired Gender identity (if verbalized by the patient): Male Sexual Orientation (if Verbalized by the Patient): Straight or Heterosexual Spiritual care concerns: No Anes - Eval Final PreProcedure Day of Procedure 08/05/24 11:44 Patient weight: obese Heart: regular rate and rhythm Lungs: decreased breath sounds Airway: Mallampati scale class II Neurological: alert and oriented Last oral intake: >/= 8 hours ASA classification: III Emergent: no Anesthetic plan: proceed Anesthesia type and monitoring: general ETT and standard monitoring Results Review: All pre-operative results and documents have been reviewed as part of the pre- operative evaluation. Informed Consent: The patient's anesthetic plan and its attendant risks and benefits were discussed with the patient/family/POA. Questions were solicited and answers provided to the satisfaction of the patient/family/POA.
[2024-08-05] MEDS: ceFAZolin 2 GM/D5W 50 ML 2 GM/50 ML BAG IVPB (11:50)
[2024-08-05] MEDS: BUPIVACAINE/EPINEPHRINE 0.5% 50 ML VIAL 30 ML INFILTRATE (12:36)
[2024-08-05] MEDS: LACTATED RINGERS 1,000 ML 30 ML IV CONT (13:01)
--- NOTE | 2024-08-05 13:48 | W.PM.PROC2 ---
Procedure Note - Detailed Date of Procedure 08/05/24 Pre-op Diagnosis Two skin cysts left upper back Post-op Diagnosis Same Procedure Performed Excision 1.3 cm lateral skin cyst with 4 cm layered closure, excision 1.5 cm upper skin cyst with 3.5 cm layered closure. No margin taken with either excision. Surgeon Pro Terry MD Environmental Tech Chelsey OCONNORA Anesthesia General and Local (0.5% Marcaine with epinephrine) Indications Patient had an infected cyst on the left upper back. This drained spontaneously and had gone on to heal. He was seen in the office and plan to be taken to surgery today for excision of the cyst remnants to prevent recurrence. On the day of surgery, a new but similarly sized, non infected skin cyst was noted and was requested to be removed at the same procedure. It was in the general vicinity of the for cyst. He is now having both of these cysts excised. Findings Cyst remnants of the lateral and lower cyst; inclusion cyst on the upper, new cyst. Description of Procedure Patient was checked in the preoperative holding area. The 2 cysts were marked on the skin. He was taken to surgery and induced into general anesthesia. He was then placed in a prone position. The area was prepped and draped. I started with the previously drained lateral cyst. An ellipse was drawn around the scar. Local was infiltrated. The skin and the underlying subcutaneous contents were excised. Cautery was used for hemostasis. This lateral cyst was 1.3 cm in greatest dimension. The associated wound was 4 cm in length. We then turned our attention to the upper and more medial skin cyst. Similarly, an ellipse was drawn around this in a transverse orientation. Local anesthetic was infiltrated thoroughly. The ellipse was incised through the skin and down to the subcutaneous. The area of the cyst was carefully dissected free from the surrounding subcutaneous. The cyst with the overlying skin was excised. The cyst measured 1.5 cm. The resultant wound to close was 3.5 cm. Hemostasis was achieved in both wounds. Additional local was infiltrated in each wound. Than, in each wound a subcutaneous layer of interrupted 4-0 Vicryl was placed. In each wound, the skin was then loosely approximated with interrupted subcuticular 4-0 Vicryl suture. Finally, both skin incisions were closed with running 4-0 Monocryl skin suture. The wounds were dressed with Exofin surgical adhesive. The patient was returned to a supine position. He was awakened and extubated. He transferred to recovery in good condition. Estimated Blood Loss -5 Drains No Packing No Pathology Yes (To skin cysts 1 labeled lateral and the other labeled upper of the left back) Complications None Condition Stable Disposition PACU [facility] Billing Surgery - Charge Forward: Surgery Billing (Excision 1.5 cm skin cyst of the upper back with 3.5 cm layered closure. Excision 1.3 cm lateral skin cyst of the left upper back with 4 cm layered closure)
== END 2024-08-05 14:55 | disposition home or self-care (01) ==
PROVIDERS: PCP Family Medicine; Visit Provider Surgery
PROC: (CPT 11402; principal; 2024-08-05 11:00)
DX: L72.0 Epidermal cyst (principal); L90.5 Scar conditions and fibrosis of skin
CPT/HCPCS: 11402 ×2; 12032; 88305; J0690; J2003; J2405; J2704; J3010; J7120

== ENCOUNTER 2024-12-12 10:13 | Outpatient (CLI) | payer OTHER, SELFPAY ==
--- OUTSIDE RECORDS SUMMARY | 2024-12-12 10:55 | XMS_ITS | Clinical Summary ---
Author Organization [facility] at the [facility] Office Center Address [address] [place] [address] Care Team Providers Care Subcontract Administrator Name Role Phone Fritz Cavazos MD Primary Care Provider Jessie Garrison MD Unavailable [phone] Allergies No known active allergies Medications fenofibrate nanocrystallized (TRICOR,TRIGLIDE) 145 mg tablet Take 1 tablet (145 mg total) by mouth daily Active ezetimibe-simvastati n (VYTORIN) 10-20 mg per tablet Take 1 tablet by mouth nightly Active aspirin 81 mg enteric coated tablet 1 tablet (81 mg total) 9 Active cholecalciferol (VITAMIN D-3) 25 mcg (1,000 [...] 2020 Assessment & Plan (05/04/2020 8:15 AM CHORAL TEACHER): Impression: Patient continues do well status post endovascular repair of his infrarenal AAA. Aortic duplex surveillance revealed widely patent endo repair with no evidence of endoleak and a venetie ira aneurysm sac that is exhibited no interval enlargement. Plan: Recommend ongoing risk factor modifications and follow-up in 6 months for re-evaluation and repeat aortic duplex surveillance. Acute kidney injury 2020 Atherosclerosis of artery 2020 Coronary arteriosclerosis in venet[place] ira artery 04/24 JESSIE (acute kidney injury) 10/12/2019 [...] 01/27/2019 Assessment & Plan (05/04/2020 8:16 AM CHORAL TEACHER): Impression: Stable nondisabling claudication both lower extremities. [...] 11/12/2018 Assessment & Plan (02/07/2024 2:25 PM CHORAL TEACHER): Stable asymptomatic moderate bilateral carotid stenosis. Continue yearly duplex surveillance and anti-platelet therapy. Assessment & Plan (01/23/2023 12:30 PM CHORAL TEACHER): Impression: Patient has stable moderate right internal carotid artery stenosis seen on carotid duplex. He remains asymptomatic. Plan: Continue ongoing risk factor modifications. -patient to follow-up in 1 year for re-evaluation with repeat carotid duplex. Assessment & Plan (05/04/2020 8:17 AM CHORAL TEACHER): Impression: Stable bilateral carotid artery disease following [...] surveillance. Assessment & Plan (01/28/2019 1:41 PM CHORAL TEACHER): Impression: Patient recover well status post left carotid endarterectomy. His surgical wounds have healed well and he has had no neurological deficits in the interim. Plan: Patient follow-up in 3 months for re-evaluation and baseline carotid duplex surveillance. Tobacco abuse 11/03/2018 Primary hypertension 11/03/2018 Assessment & Plan (02/07/2024 2:26 PM CHORAL TEACHER): Hypertension chronic controlled. Continue current medical management. Assessment & Plan (01/23/2023 12:30 PM CHORAL TEACHER): Impression: Chronic stable. Plan: Continue carvedilol and losartan Assessment & Plan (05/04/2020 8:27 AM CHORAL TEACHER): Impression: Stable chronic hypertension. Plan: Medication reviewed [...] 11/02/2018 Assessment & Plan (02/07/2024 2:25 PM CHORAL TEACHER): Stent graft in good position no endoleak. Follow up 1 year with duplex surveillance. Assessment & Plan (01/23/2023 12:31 PM CHORAL TEACHER): Impression: Patient is status post endovascular repair [...] with no evidence of endoleak and a venetie ira aneurysm sac which has exhibited interval decrease in size currently measuring 4.1 cm in greatest transverse dimension. Plan: Patient follow-up in 6 months for re-evaluation and repeat CTA surveillance. Osteoarthritis 11/02/2018 Assessment & Plan (10/12/2019 11:27 AM CDT): He was on diclofenac 75 mg twice a day as well as other nonsteroidal agents [id number] for arthritis related pain for several years. I encouraged him to stop both those groups of medicines because of potential nephrotoxicity. I recommended Tylenol or acetaminophen [id number] for his arthritis related pain. If he [...] on file Legal Sex Male 6:28 PM CHORAL TEACHER Gender Identity Not on file Sexual Orientation [...] 3:54 PM CDT Height 177.8 cm (5' 10) 07/27/2024 3:54 PM CDT Body Mass Index [...] Well Visit 65+ 2017 Influenza Vaccine (#1) 2024 0, 01/14/2019, 01/12/2013 Abdominal Aortic Aneurysm (A [...] Date: 10/14/1939 Age: 69 Sex: Male MR#: [id number] Loc: [facility]#: [id number] RADIOLOGY REPORT Order #[id number] CT Scan CTA Abdomen/Pelvis w Contrast Signed [...] Electronically signed by Vinod URBAN Report ID: [id number] Reading Location: [id number] REPORT ELECTRONICALLY SIGNED IN OTHER VENDOR SYSTEM Resulting Agency Comment O Procedure Note Vinod Pineda MD - 10/14/2019 Patient Name: JOSEP DAVIES Liam Dr: Prince Calvillo MD D.O.B: 1950 Exam Date: 10/14/19740 Age: 69 Sex: Male MR#: [id number] Loc: RADIOLOGY REPORT Order #[id number] CT Scan CTA Abdomen/Pelvis w Contrast Signed [...] Electronically signed by Vinod URBAN Report ID: [id number] Reading Location: [place] [id number] REPORT ELECTRONICALLY SIGNED IN OTHER VENDOR SYSTEM Prince Calvillo MD IMG CT PROCEDURES Final Res ult from Last 3 Months or Most Recently Relevant to Health Maintenance Insurance [facility] Care Teams Subcontract Administrator Relationship Specialty Start Date End Date Fritz Cavazos MD [address] [place] [address] PCP - General Family Medicine 10/29/18 Jessie Garrison MD [address] [place] [address] Occupational Therapist Per Diem Cardiology 01/31/19
--- OUTSIDE RECORDS SUMMARY | 2024-12-12 10:55 | XMS_ITS | Clinical Summary ---
Author Organization [facility] Address [address] [place] [address] Care Team Providers Care Roller Stainer Name Role Phone Unavailable Primary Care Provider [...] COVID-19 Vaccine ( - 2023-2 5 season) 2024 RSV Immunization or 60+ Years (1 - [...]
[2024-12-12 11:10] LABS: Anion Gap 10 mmol/L (4-12); Blood Urea Nitrogen 46 mg/dL (9-20); Calcium 9.0 mg/dL (8.4-10.2); Carbon Dioxide 20 mmol/L (22-30); Chloride 106 mmol/L (98-107); Estimated Glomerular Filt Rate 42; Glucose 103 mg/dL (65-110); Potassium 5.5 mmol/L (3.4-5.0); Sodium 136 mmol/L (137-145)
== END 2024-12-12 10:14 | disposition home or self-care (01) ==
PROVIDERS: PCP Family Medicine; Visit Provider Physician Assistant
DX: E87.5 Hyperkalemia (principal); N18.9 Chronic kidney disease, unspecified
CPT/HCPCS: 36415; 80048

== ENCOUNTER 2024-12-21 10:21 | Outpatient (CLI) | payer OTHER, SELFPAY ==
[2024-12-21 11:15] LABS: Anion Gap 11 mmol/L (4-12); Blood Urea Nitrogen 24 mg/dL (9-20); Calcium 9.7 mg/dL (8.4-10.2); Carbon Dioxide 22 mmol/L (22-30); Chloride 104 mmol/L (98-107); Estimated Glomerular Filt Rate > 60; Glucose 125 mg/dL (65-110); Potassium 4.7 mmol/L (3.4-5.0); Sodium 137 mmol/L (137-145)
== END 2024-12-21 10:22 | disposition home or self-care (01) ==
LOC: ANHLAB 10:27
PROVIDERS: PCP Family Medicine; Visit Provider Physician Assistant
DX: E87.5 Hyperkalemia (principal); N17.9 Acute kidney failure, unspecified
CPT/HCPCS: 36415; 80048

== ENCOUNTER 2025-01-13 11:29 | Outpatient (CLI) | payer OTHER, SELFPAY ==
--- OUTSIDE RECORDS SUMMARY | 2025-01-13 11:40 | XMS_ITS | Clinical Summary ---
Author Organization [facility] Address [address] [place] [address] Care Team Providers Care Trial Paralegal Name Role Phone Unavailable Primary Care Provider [...] of 2) 2002 COVID-19 Vaccine ( - 2024-2 6 season) 2024 Influenza Adult (#1) 2024 RSV Immunization or 60+ Years (1 - 1-dose 75+ series) 2027 Hepatitis A Vaccines Aged Out No long er eligible based on patient's age to complete this topic Meningococcal B Vaccine Aged Out No l onger eligible based on patient's age to complete this topic Meningococcal Vaccine Aged Out No mello regi eligible based on patient's age to complete this topic RSV Immunizations Under 20 Months Aged Out No longer eligible based on patient's age to complete this topic
--- OUTSIDE RECORDS SUMMARY | 2025-01-13 11:40 | XMS_ITS | Clinical Summary ---
Author Organization [facility] at the [facility] Office Center Address [address] [place] [address] Care Team Providers Care Hand Router Operator Name Role Phone Fritz Cavazos MD Primary Care Provider Jessie Garrison MD Unavailable [phone] Allergies No known active allergies Medications fenofibrate [...] 2020 Assessment & Plan (05/04/2020 8:15 AM EXTENSION EDGER): Impression: Patient continues do well status post endovascular repair of his infrarenal AAA. Aortic duplex surveillance revealed widely patent endo repair with no evidence of endoleak and a [place]om[place] aneurysm sac that is exhibited no interval enlargement. Plan: Recommend ongoing risk factor modifications and follow-up in 6 months for re-evaluation and repeat aortic duplex surveillance. Acute kidney injury 2020 Atherosclerosis of artery 2020 Coronary arteriosclerosis in [place]om[place] artery 04/24 JESSIE (acute kidney injury) 10/12/2019 [...] 01/27/2019 Assessment & Plan (05/04/2020 8:16 AM EXTENSION EDGER): Impression: Stable nondisabling claudication both lower extremities. [...] 11/12/2018 Assessment & Plan (02/07/2024 2:25 PM EXTENSION EDGER): Stable asymptomatic moderate bilateral carotid stenosis. Continue yearly duplex surveillance and anti-platelet therapy. Assessment & Plan (01/23/2023 12:30 PM EXTENSION EDGER): Impression: Patient has stable moderate right internal carotid artery stenosis seen on carotid duplex. He remains asymptomatic. Plan: Continue ongoing risk factor modifications. -patient to follow-up in 1 year for re-evaluation with repeat carotid duplex. Assessment & Plan (05/04/2020 8:17 AM EXTENSION EDGER): Impression: Stable bilateral carotid artery disease following [...] surveillance. Assessment & Plan (01/28/2019 1:41 PM EXTENSION EDGER): Impression: Patient recover well status post left carotid endarterectomy. His surgical wounds have healed well and he has had no neurological deficits in the interim. Plan: Patient follow-up in 3 months for re-evaluation and baseline carotid duplex surveillance. Tobacco abuse 11/03/2018 Primary hypertension 11/03/2018 Assessment & Plan (02/07/2024 2:26 PM EXTENSION EDGER): Hypertension chronic controlled. Continue current medical management. Assessment & Plan (01/23/2023 12:30 PM EXTENSION EDGER): Impression: Chronic stable. Plan: Continue carvedilol and losartan Assessment & Plan (05/04/2020 8:27 AM EXTENSION EDGER): Impression: Stable chronic hypertension. Plan: Medication reviewed [...] 11/02/2018 Assessment & Plan (02/07/2024 2:25 PM EXTENSION EDGER): Stent graft in good position no endoleak. Follow up 1 year with duplex surveillance. Assessment & Plan (01/23/2023 12:31 PM EXTENSION EDGER): Impression: Patient is status post endovascular repair [...] with no evidence of endoleak and a menominee aneurysm sac which has exhibited interval decrease in size currently measuring 4.1 cm in greatest transverse dimension. Plan: Patient follow-up in 6 months for re-evaluation and repeat CTA surveillance. Osteoarthritis 11/02/2018 Assessment & Plan (10/12/2019 11:27 AM CDT): He was on diclofenac 75 mg twice a day as well as other nonsteroidal agents [id number] for arthritis related pain for several years. I encouraged him to stop both those groups of medicines because of potential nephrotoxicity. I recommended Tylenol or acetaminophen [id number] for his arthritis related pain. If he [...] on file Legal Sex Male 6:28 PM EXTENSION EDGER Gender Identity Not on file Sexual Orientation [...] Date: 10/14/1939 Age: 69 Sex: Male MR#: [id number] Loc: [facility]#: [id number] RADIOLOGY REPORT Order #[id number] CT Scan CTA Abdomen/Pelvis w Contrast Signed [...] Electronically signed by Vinod URBAN Report ID: [id number] Reading Location: [id number] REPORT ELECTRONICALLY SIGNED IN OTHER VENDOR SYSTEM Resulting Agency Comment O Procedure Note Vinod Pineda MD - 10/14/2019 Patient Name: JOSPE DAVIES Liam Dr: Prince Calvillo MD D.O.B: 1950 Exam Date: 10/14/19740 Age: 69 Sex: Male MR#: [id number] Loc: RADIOLOGY REPORT Order #[id number] CT Scan CTA Abdomen/Pelvis w Contrast Signed [...] Electronically signed by Vinod URBAN Report ID: [id number] Reading Location: [place] [address] REPORT ELECTRONICALLY SIGNED IN OTHER VENDOR SYSTEM Prince Calvillo MD IMG CT PROCEDURES Final Res ult from Last 3 Months or Most Recently Relevant to Health Maintenance Insurance [facility] Care Teams Hand Router Operator Relationship Specialty Start Date End Date Fritz Cavazos MD [address] [place] [address] PCP - General Family Medicine 10/29/18 Jessie Garrison MD [address] [place] [address] Rubber Curer Cardiology 01/31/19
[2025-01-13 13:16] LABS: Anion Gap 10 mmol/L (4-12); Blood Urea Nitrogen 28 mg/dL (9-20); Calcium 9.6 mg/dL (8.4-10.2); Carbon Dioxide 24 mmol/L (22-30); Chloride 106 mmol/L (98-107); Estimated Glomerular Filt Rate 52; Glucose 105 mg/dL (65-110); Potassium 5.8 mmol/L (3.4-5.0); Sodium 140 mmol/L (137-145)
== END 2025-01-13 11:30 | disposition home or self-care (01) ==
LOC: ANHLAB 11:30
PROVIDERS: PCP Family Medicine; Visit Provider Physician Assistant
DX: N18.30 Chronic kidney disease, stage 3 unspecified (principal); N17.9 Acute kidney failure, unspecified; N18.9 Chronic kidney disease, unspecified; E87.5 Hyperkalemia
CPT/HCPCS: 36415; 80048

== ENCOUNTER 2025-01-27 10:46 | Outpatient (CLI) | payer OTHER, SELFPAY ==
[2025-01-27 12:40] LABS: Anion Gap 7 mmol/L (4-12); Blood Urea Nitrogen 25 mg/dL (9-20); Calcium 9.8 mg/dL (8.4-10.2); Carbon Dioxide 28 mmol/L (22-30); Chloride 106 mmol/L (98-107); Estimated Glomerular Filt Rate > 60; Glucose 120 mg/dL (65-110); Potassium 5.3 mmol/L (3.4-5.0); Sodium 141 mmol/L (137-145)
== END 2025-01-27 10:47 | disposition home or self-care (01) ==
LOC: ANHLAB 10:51
PROVIDERS: PCP Family Medicine; Visit Provider Physician Assistant
DX: E87.5 Hyperkalemia (principal)
CPT/HCPCS: 36415; 80048

== ENCOUNTER 2025-02-14 10:30 | Outpatient (CLI) | payer OTHER, SELFPAY ==
[2025-02-14 11:24] LABS: Anion Gap 6 mmol/L (4-12); Blood Urea Nitrogen 23 mg/dL (9-20); Calcium 9.7 mg/dL (8.4-10.2); Carbon Dioxide 27 mmol/L (22-30); Chloride 108 mmol/L (98-107); Estimated Glomerular Filt Rate 57; Glucose 136 mg/dL (65-110); Potassium 4.4 mmol/L (3.4-5.0); Sodium 141 mmol/L (137-145)
--- OUTSIDE RECORDS SUMMARY | 2025-02-14 11:29 | XMS_ITS | Clinical Summary ---
Author Organization [facility] Address [address] [place] [address] Care Team Providers Care Supervisor Advertising Dispatch Clerks Name Role Phone Fritz Cavazos MD Primary Care Provider Jessie Garrison MD Unavailable [phone] Allergies No known active allergies Medications fenofibrate [...] 2020 Assessment & Plan (05/04/2020 8:15 AM JIG FILLER): Impression: Patient continues do well status post endovascular repair of his infrarenal AAA. Aortic duplex surveillance revealed widely patent endo repair with no evidence of endoleak and a port graham aneurysm sac that is exhibited no interval enlargement. Plan: Recommend ongoing risk factor modifications and follow-up in 6 months for re-evaluation and repeat aortic duplex surveillance. Acute kidney injury 2020 Atherosclerosis of artery 2020 Coronary arteriosclerosis in port graham artery 04/24 JESSIE (acute kidney injury) 10/12/2019 [...] 01/27/2019 Assessment & Plan (05/04/2020 8:16 AM JIG FILLER): Impression: Stable nondisabling claudication both lower extremities. [...] 11/12/2018 Assessment & Plan (02/07/2024 2:25 PM JIG FILLER): Stable asymptomatic moderate bilateral carotid stenosis. Continue yearly duplex surveillance and anti-platelet therapy. Assessment & Plan (01/23/2023 12:30 PM JIG FILLER): Impression: Patient has stable moderate right internal carotid artery stenosis seen on carotid duplex. He remains asymptomatic. Plan: Continue ongoing risk factor modifications. -patient to follow-up in 1 year for re-evaluation with repeat carotid duplex. Assessment & Plan (05/04/2020 8:17 AM JIG FILLER): Impression: Stable bilateral carotid artery disease following [...] surveillance. Assessment & Plan (01/28/2019 1:41 PM JIG FILLER): Impression: Patient recover well status post left carotid endarterectomy. His surgical wounds have healed well and he has had no neurological deficits in the interim. Plan: Patient follow-up in 3 months for re-evaluation and baseline carotid duplex surveillance. Tobacco abuse 11/03/2018 Primary hypertension 11/03/2018 Assessment & Plan (02/07/2024 2:26 PM JIG FILLER): Hypertension chronic controlled. Continue current medical management. Assessment & Plan (01/23/2023 12:30 PM JIG FILLER): Impression: Chronic stable. Plan: Continue carvedilol and losartan Assessment & Plan (05/04/2020 8:27 AM JIG FILLER): Impression: Stable chronic hypertension. Plan: Medication reviewed [...] 11/02/2018 Assessment & Plan (02/07/2024 2:25 PM JIG FILLER): Stent graft in good position no endoleak. Follow up 1 year with duplex surveillance. Assessment & Plan (01/23/2023 12:31 PM JIG FILLER): Impression: Patient is status post endovascular repair [...] with no evidence of endoleak and a port graham aneurysm sac which has exhibited interval decrease in size currently measuring 4.1 cm in greatest transverse dimension. Plan: Patient follow-up in 6 months for re-evaluation and repeat CTA surveillance. Osteoarthritis 11/02/2018 Assessment & Plan (10/12/2019 11:27 AM CDT): He was on diclofenac 75 mg twice a day as well as other nonsteroidal agents [id number] for arthritis related pain for several years. I encouraged him to stop both those groups of medicines because of potential nephrotoxicity. I recommended Tylenol or acetaminophen [id number] for his arthritis related pain. If he [...] on file Legal Sex Male 6:28 PM JIG FILLER Gender Identity Not on file Sexual Orientation [...] Date: 10/14/19740 Age: 69 Sex: Male MR#: [id number] Loc: [facility]#: [id number] RADIOLOGY REPORT Order #[id number] CT Scan CTA Abdomen/Pelvis w Contrast Signed [...] Electronically signed by Vinod URBAN Report ID: [id number] Reading Location: [id number] REPORT ELECTRONICALLY SIGNED IN OTHER VENDOR SYSTEM Resulting Agency Comment O Procedure Note Vinod Pineda MD - 10/14/2019 Patient Name: JOSEP DAVIES Dr: Prince Calvillo MD D.O.B: 1950 Exam Date: 10/14/19740 Age: 69 Sex: Male MR#: [id number] Loc: RADIOLOGY REPORT Order #[id number] CT Scan CTA Abdomen/Pelvis w Contrast Signed [...] Electronically signed by Vinod URBAN Report ID: [id number] Reading Location: [id number] REPORT ELECTRONICALLY SIGNED IN OTHER VENDOR SYSTEM Prince Calvillo MD IMG CT PROCEDURES Final Res ult from Last 3 Months or Most Recently Relevant to Health Maintenance Insurance [facility] Care Teams Supervisor Advertising Dispatch Clerks Relationship Specialty Start Date End Date Fritz Cavazos MD [address] [facility] [address] [place] [address] PCP - General Family Medicine 10/29/18 Jessie Garrison MD [address] [place] [address] It Disaster Recovery Manager Cardiology 01/31/19
== END 2025-02-14 10:31 | disposition home or self-care (01) ==
LOC: ANHLAB 10:31
PROVIDERS: PCP Family Medicine; Visit Provider Physician Assistant
DX: N17.9 Acute kidney failure, unspecified (principal); I10 Essential (primary) hypertension; E87.5 Hyperkalemia
CPT/HCPCS: 36415; 80048